=== PATIENT | male | born 1950 | race Caucasian/White ===

== ENCOUNTER 2017-10-31 07:18 | Observation (INO) | payer MEDICARE ==
--- OUTSIDE RECORDS SUMMARY | 2017-10-31 07:27 | XMS REPORT ---
:1950 External Reference #:[id number] [facility] Address [address] [address] Phone [phone] Care Team Providers Name Role Phone Delonte Brink MD Care Team Information General Agent Unavailable Ross Fonseca NP Primary Care Physician Unavailable Payers Type Date Identification Numbers Payment Provider Subscriber Medicare Primary Effective: Policy Number: Medicare Jv Diaz 2010 [id number] PayID: [id number] [address] [place] [address] [facility] Part B Policy Number: [id number] [facility] Jv Diaz PayID: [id number] [address] [place] [address] Problems Date Description Provider Status Onset: 02/06/2012 Paroxysmal supraventricular Asher Melton M.D. Active tachycardia Onset: 02/06/2012 Coronary arteriosclerosis Asher Melton M.D. Active Onset: 02/06/2012 Benign essential hypertension Asher Melton M.D. 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 Active Onset: 03/18/2014 Electrocardiogram abnormal Asher Melton M.D. Active Onset: 03/18/2014 Pure hypercholesterolemia Asher Melton M.D. Active Onset: 07/13/2014 Obstructive sleep apnea of adult Lizzy Blair DNP, Active RN, INTERIOR DESIGN PROJECT MANAGER- Note: npsg 02/15/10 Family History Date Family Member(s) Problem(s) Comments Onset: (age 65 Father CABG Years) Paternal Grandfather due to Cancer, () - heart Colon problems Paternal Grandmother due to Heart () Disease Social History Type Date Description Comments Marital Status Occupation Currently Working ETOH Use Occasionally consumes alcohol Smoking Patient is a former smoker Daily Caffeine Consumes on average 1 cup of regular coffee per day Allergies, Adverse Reactions, Alerts Date Description Reaction Status Severity Comments 10/03/2006 NKDA active Medications Medication Date Status Form Strength Qnty SIG Indications Ordering Provider Verapamil HCL 12/25/ Active Caps ER 120mg 60cap 1 by mouth Asher ER 2015 24HR s twice a day Filiberto Melton M.D. Omeprazole 01/21/ Active Capsules 40mg 90cap 1 by mouth Asher 2014 DR jacobo every day Filiberto Melton M.D. Lipitor 08/17/ Active Tablets 10mg 90tab 1/2 tablet by Asher 2012 s mouth every F. night at [facility], bedtime M.Kadi Jobst 07/31/ Active Misc 2Pair 1 pair daily Asher Anti-Embolism 2011 F. Knee Adolph Melton/Medium M.DSil Regular Nitrostat 02/23/ Active Tablets 0.4mg 25tab one sl q5min up Mozier 2009 Sub s to 3 doses as Kadi Cordova, needed M.DSil Aspirin 09/06/ Active Tablets 81mg 50tab 1 po qd Asher 2008 s Filiberto Melton M.D. Atenolol 08/17/ Active Tablets 25mg 90tab 1 by mouth Asher 2008 s every day Filiberto Melton M.D. Allopurinol 10/03/ Active Tablets 300mg 30tab 1 PO qd Asher 2006 s Filiberto Melton M.D. Fish Oil / Active Oil 1200 1 po bid Unknown 0000 C-Pap / Active qhs Unknown 0000 Verapamil HCL 12/16/ Hx Tablets 120mg 180ta 1 tab in the Mozier 2016 - bs morning, 1 tab DSil Cordova, 12/25/ at night M.DSil 2015 Lovenox 05/14/ Hx Solution 115mg 10uni 1 Unknown 2011 - ts subcutaneously 07/31/ q12h as 2012 directed Lipitor 09/20/ Hx Tablets 10mg 90tab 1/2 po qd Asher 2010 - s F. trace, 2012 M.D. Lipitor 07/20/ Hx Tablets 20mg 30tab one tab po qhs Asher 2010 - s F. trace, 2010 M.D. Zocor 05/28/ Hx Tablets 20mg 1 po qhs Asher 2010 - F. 07/20/ trace, 2010 M.D. Omeprazole 07/13/ Hx Capsules 40mg 90cap 1 by mouth Asher 2009 - DR s every day . Geronimo, 2014 M.D. Diltiazem HCL 08/17/ Hx Caps ER 120mg 90cap 1 by mouth Asher ER 2008 - 24HR s every day at at F. 10/14/ bedtime (pt to [email or web address] stop when M.D. supply completed and begin verapamil) Lisinopril 10/28/ Hx Tablets 2.5mg 90tab 1/2 po qd Asher 2008 - s . Geronimo, 2008 M.D. Lisinopril 10/15/ Hx Tablets 2.5mg 90tab 1 po qd Asher 2008 - s F. 10/20/ Geronimo, 2008 M.D. Nitro-Dur 10/04/ Hx Patches 0.3mg/HR 90uni Topically qam Asher 2008 - 24HR ts Off In PM prn F. Geronimo, 2012 M.D. Nitro-Dur 05/25/ Hx Patches 0.2mg/HR 30uni 1 Patch qd Asher 2007 - 24HR ts F. 10/04/ On In Geronimo2008 The Am, Off In M.D. The PM Atenolol 05/14/ Hx Tablets 25mg 180ta 1 PO bid Asher 2007 - bs F. Geronimo, 2008 M.D. Ibuprofen 05/13/ Hx Tablets 800mg PO tid prn Asher 2007 - (rare use) F. Geronimo, 2016 M.D. Zocor 05/10/ Hx Tablets 40mg 90tab 1 PO QHS Asher 2007 - s F. 05/28/ Mauser, 2010 M.DSil Nitroquick 03/16/ Hx Tablets 0.4mg 25tab 1 S/L prn Chest Asher 2007 - Sub s Pain, Q 5 Min. F. 02/23/ Up To 3 Tabs user, 2009 M.D. Plavix 03/12/ Hx Tablets 75mg 90tab 1 PO qd Asher 2007 - s F. 05/15/ Mauser, 2011 M.D. Zocor 03/12/ Hx Tablets 40mg 90tab 1 PO QHS Asher 2007 - s F. 03/12/ Mauser, 2007 M.Kadi Aspir-81 03/12/ Hx Tablets 81mg 30tab 1 PO qd Asher 2007 - DR s F. 09/06/ user, 2008 Luke.Kadi Cartia XT 03/12/ Hx Caps ER 120mg 90cap 1 po qd Asher 2007 - 24HR s F. 10/15/ user, 2008 M.Kadi Nitro-Dur 03/12/ Hx Patches 0.1mg/HR 90uni 1 to chest wall Asher 2007 - 24HR ts on qam off qpm F. 05/25/ user, 2007 MBinh Zocor 03/12/ Hx Tablets 20mg 30tab 1 PO QHS Asher 2007 - s F. 05/10/ user, 2007 M.Kadi Nitro-Dur 02/24/ Hx Patches 0.2mg/HR 30uni 1 Patch qd Asher 2007 - 24HR ts F. 03/12/ On In , 2007 The Am, Off In M.D. The PM Norvasc 10/08/ Hx Tablets 5mg 1 po qd Asher 2006 - F. 10/08/ Mauser, 2006 Osman Atenolol 10/03/ Hx Tablets 50mg 90tab 1/2 PO bid Asher 2006 - s F. 05/14/ Mauser, 2007 Osman Ibuprofen 10/03/ Hx Tablets 800mg 1 PO Q 8 HRS Asher 2006 - F. 05/13/ user, 2007 M.D. Norvasc 10/03/ Hx Tablets 5mg 5tabs 1 po qd 2 days Asher 2006 - before and day . stress test. Zia Melton M.D. Aspirin / Hx Tablets 325mg 50tab 1 po qd Unknown 0000 - s 2008 Coumadin / Hx Solution 60uni as directed Unknown 0000 - Rec ts managed by 07/31/ roberth brunner 2011 med Warfarin / Hx Tablets 4mg 90tab take as Unknown Sodium 0000 - s directed Beverley Raymundo manages 2013 Verapamil HCL / Hx Caps ER 120mg 90cap 1 tablet bid Asher ER 0000 - 24HR s F. 12/16/ Maycol Melton M.D. Vital Signs Date Vital Result Comment 10/25/2017 Height 70 inches 5'10" Weight 265.00 lb BP Systolic 124 mmHg BP Diastolic 70 mmHg Respiratory Rate 20 /min Body Temperature 97.4 F Pain Level 8 BMI (Body Mass Index) 38.0 kg/m2 06/18/2017 Height 70 inches 5'10" Weight 265.00 lb Heart Rate 60 /min BP Systolic Sitting 122 mmHg BP Diastolic Sitting 80 mmHg Respiratory Rate 14 /min O2 % BldC Oximetry 95 % BMI (Body Mass Index) 38.0 kg/m2 02/13/2017 Height 70 inches 5'10" Weight 266.75 lb with shoes Heart Rate 66 /min BP Systolic Sitting 128 mmHg LA lrg cuff BP Diastolic Sitting 78 mmHg LA lrg cuff BMI (Body Mass Index) 38.3 kg/m2 Ejection Fraction 64% Nem 05/18/11 01/07/2017 Height 70 inches 5'10" Weight 275.00 lb w/shoes Heart Rate 62 /min BP Systolic Sitting 142 mmHg LA, large BP Diastolic Sitting 88 mmHg LA, large BMI (Body Mass Index) 39.5 kg/m2 Ejection Fraction 64% Nem 05/18/11 06/12/2016 Height 70 inches 5'10" Weight 269.00 lb Heart Rate 68 /min BP Systolic 144 mmHg BP Diastolic 88 mmHg Respiratory Rate 14 /min O2 % BldC Oximetry 97 % BMI (Body Mass Index) 38.6 kg/m2 04/10/2016 Height 70 inches 5'10" Weight 261.00 lb with shoes Heart Rate 70 /min BP Systolic Sitting 146 mmHg LA lrg cuff BP Diastolic Sitting 92 mmHg LA lrg cuff BP Systolic Standing 128 mmHg la sitting repeat BP Diastolic Standing 86 mmHg la sitting repeat BMI (Body Mass Index) 37.4 kg/m2 11/08/2015 Height 70 inches 5'10" Heart Rate 72 /min BP Systolic 132 mmHg LA, large BP Diastolic 76 mmHg LA, large BP Systolic Sitting 132 mmHg Ra, large BP Diastolic Sitting 78 mmHg Ra, large BP Systolic Recheck 130 mmHg HR 66 (home unit) BP Diastolic Recheck 82 mmHg HR 66 (home unit) 08/08/2015 Height 70 inches 5'10" Weight 258.00 lb w/shoes Heart Rate 62 /min BP Systolic Sitting 164 mmHg LA lg cuff BP Diastolic Sitting 82 mmHg LA lg cuff BP Systolic Standing 132 mmHg la repeat sitting. BP Diastolic Standing 86 mmHg la repeat sitting. BMI (Body Mass Index) 37.0 kg/m2 Ejection Fraction 64 Nem 11/04/12 06/17/2015 Height 70 inches 5'10" Weight 258.38 lb Heart Rate 75 /min BP Systolic 152 mmHg BP Diastolic 98 mmHg Respiratory Rate 14 /min O2 % BldC Oximetry 98 % BMI (Body Mass Index) 37.1 kg/m2 Neck Circumference in inches 19 01/03/2015 Height 70 inches 5'10" Weight 264.25 lb w/shoes Heart Rate 70 /min BP Systolic 137 mmHg repeat. la sitting BP Diastolic 89 mmHg repeat. la sitting BP Systolic Sitting 150 mmHg LA lg cuff BP Diastolic Sitting 92 mmHg LA lg cuff Respiratory Rate 14 /min BMI (Body Mass Index) 37.9 kg/m2 07/13/2014 Height 70 inches 5'10" Weight 260.00 lb Heart Rate 57 /min BP Systolic Sitting 141 mmHg BP Diastolic Sitting 93 mmHg Respiratory Rate 20 /min O2 % BldC Oximetry 96 % Ra BMI (Body Mass Index) 37.3 kg/m2 03/18/2014 Height 70 inches 5'10" Weight 256.50 lb Heart Rate 76 /min BP Systolic Sitting 138 mmHg BP Diastolic Sitting 74 mmHg Respiratory Rate 16 /min BMI (Body Mass Index) 36.8 kg/m2 08/17/2013 Height 70 inches 5'10" Weight 256.00 lb Heart Rate 54 /min BP Systolic 120 mmHg BP Diastolic 80 mmHg Respiratory Rate 16 /min BMI (Body Mass Index) 36.7 kg/m2 03/11/2013 Height 70 inches 5'10" Weight 262.00 lb Heart Rate 61 /min BP Systolic 122 mmHg BP Diastolic 86 mmHg Respiratory Rate 16 /min BMI (Body Mass Index) 37.6 kg/m2 11/06/2012 Height 70 inches 5'10" Weight 260.00 lb Heart Rate 68 /min BP Systolic 118 mmHg BP Diastolic 78 mmHg BMI (Body Mass Index) 37.3 kg/m2 07/31/2012 Height 70 inches 5'10" Weight 261.00 lb Heart Rate 72 /min BP Systolic Sitting 142 mmHg BP Diastolic Sitting 80 mmHg BMI (Body Mass Index) 37.4 kg/m2 02/06/2012 Height 70 inches 5'10" Weight 253.00 lb Heart Rate 61 /min BP Systolic 120 mmHg BP Diastolic 84 mmHg Respiratory Rate 16 /min BMI (Body Mass Index) 36.3 kg/m2 05/03/2011 Height 70 inches 5'10" Weight 260.00 lb Heart Rate 67 /min BP Systolic 120 mmHg L BP Diastolic 90 mmHg L BMI (Body Mass Index) 37.3 kg/m2 07/13/2010 Height 70 inches 5'10" Weight 252.00 lb Heart Rate 57 /min BP Systolic 120 mmHg BP Diastolic 84 mmHg Respiratory Rate 16 /min BMI (Body Mass Index) 36.2 kg/m2 02/16/2010 Height 70 inches 5'10" Weight 262.00 lb Heart Rate 64 /min BP Systolic Sitting 110 mmHg BP Diastolic Sitting 78 mmHg BMI (Body Mass Index) 37.6 kg/m2 09/06/2009 Weight 252.00 lb Heart Rate 70 /min BP Systolic Sitting 110 mmHg BP Diastolic Sitting 80 mmHg Respiratory Rate 16 /min 08/17/2009 Height 69 inches 5'9" Weight 247.00 lb Heart Rate 79 /min BP Systolic Sitting 110 mmHg BP Diastolic Sitting 70 mmHg BMI (Body Mass Index) 36.5 kg/m2 05/06/2009 Weight 249.00 lb Heart Rate 66 /min BP Systolic Sitting 110 mmHg BP Diastolic Sitting 80 mmHg Respiratory Rate 16 /min 11/03/2008 Height 69 inches 5'9" Weight 255.00 lb Heart Rate 72 /min BP Systolic Sitting 104 mmHg L BP Diastolic Sitting 78 mmHg L BMI (Body Mass Index) 37.7 kg/m2 10/15/2008 Height 69 inches 5'9" Weight 263.00 lb Heart Rate 85 /min BP Systolic Sitting 120 mmHg BP Diastolic Sitting 80 mmHg BP Systolic Standing 110 mmHg BP Diastolic Standing 82 mmHg BMI (Body Mass Index) 38.8 kg/m2 05/13/2008 Height 69 inches 5'9" Weight 247.00 lb Heart Rate 68 /min BP Systolic Sitting 104 mmHg BP Diastolic Sitting 80 mmHg BP Systolic Standing 98 mmHg BP Diastolic Standing 80 mmHg BMI (Body Mass Index) 36.5 kg/m2 03/12/2008 Height 69 inches 5'9" Weight 254.00 lb Heart Rate 61 /min BP Systolic Sitting 140 mmHg L BP Diastolic Sitting 88 mmHg L BMI (Body Mass Index) 37.5 kg/m2 10/03/2006 Height 69 inches 5'9" Weight 265.00 lb Heart Rate 63 /min BP Systolic Sitting 138 mmHg left arm, right arm 140/98 BP Diastolic Sitting 94 mmHg left arm, right arm 140/98 BP Systolic Standing 140 mmHg BP Diastolic Standing 100 mmHg BMI (Body Mass Index) 39.1 kg/m2 Results Test Date Test Result H/L Range Note Laboratory test finding 10/16/2016 Magnesium 1.9 mg/dL 1.9-2.7 1 CBC Auto Diff 10/16/2016 White Blood Count 5.3 10^3/uL 3.5-10.8 Red Blood Count 5.18 10^6/uL 4.0-5.4 Hemoglobin 15.8 g/dL 14.0-18.0 Hematocrit 48 % 42-52 Mean Corpuscular Volume 92 fL 80-94 Mean Corpuscular Hemoglobin 31 pg 27-31 Mean Corpuscular HGB Conc 33 g/dL 31-36 Red Cell Distribution Width 14 % 10.5-15 Platelet Count 141 10^3/uL Low 150-450 Mean Platelet Volume 8 um3 7.4-10.4 Abs Neutrophils 2.8 10^3/uL 1.5-7.7 Abs Lymphocytes 1.7 10^3/uL 1.0-4.8 Abs Monocytes 0.6 10^3/uL 0-0.8 Abs Eosinophils 0.2 10^3/uL 0-0.6 Abs Basophils 0 10^3/uL 0-0.2 Abs Nucleated RBC 0.02 10^3/uL Granulocyte % 52.8 % 38-83 Lymphocyte % 31.9 % 25-47 Monocyte % 10.7 % High 1-9 Eosinophil % 4.0 % 0-6 Basophil % 0.6 % 0-2 Nucleated Red Blood Cells % 0.4 Lipid Panel - [facility] 10/16/2016 Creatine Kinase(CK) 73 U/L 10-223 Comp Metabolic Panel 10/16/2016 Sodium 137 mmol/L 133-145 Potassium 4.4 mmol/L 3.5-5.0 Chloride 104 mmol/L 101-111 Co2 Carbon Dioxide 26 mmol/L 22-32 Anion Gap 7 mmol/L 2-11 Glucose 115 mg/dL High 70-100 Blood Urea Nitrogen 19 mg/dL 6-24 Creatinine 0.97 mg/dL 0.67-1.17 BUN/Creatinine Ratio 19.6 8-20 Calcium 9.4 mg/dL 8.6-10.3 Total Protein 6.5 g/dL 6.4-8.9 Albumin 4.3 g/dL 3.2-5.2 Globulin 2.2 g/dL 2-4 Albumin/Globulin Ratio 2.0 1-3 Total Bilirubin 1.40 mg/dL High 0.2-1.0 Alkaline Phosphatase 53 U/L 34-104 Alt 25 U/L 7-52 Ast 17 U/L 13-39 Egfr Non- 77.9 >60 Egfr 100.2 >60 2 Lipid Profile (Trig/Chol/HDL) 10/16/2016 Triglycerides 161 mg/dL 3 Cholesterol 149 mg/dL 4 HDL Cholesterol 33.8 mg/dL 5 LDL Cholesterol 83 mg/dL 6 CBC Auto Diff 10/14/2015 White Blood Count 5.0 10^3/uL 3.5-10.8 Red Blood Count 5.24 10^6/uL 4.0-5.4 Hemoglobin 16.2 g/dL 14.0-18.0 Hematocrit 49 % 42-52 Mean Corpuscular Volume 94 fL 80-94 Mean Corpuscular Hemoglobin 31 pg 27-31 Mean Corpuscular HGB Conc 33 g/dL 31-36 Red Cell Distribution Width 14 % 10.5-15 Platelet Count 167 10^3/uL 150-450 Mean Platelet Volume 9 um3 7.4-10.4 Abs Neutrophils 2.6 10^3/uL 1.5-7.7 Abs Lymphocytes 1.5 10^3/uL 1.0-4.8 Abs Monocytes 0.6 10^3/uL 0-0.8 Abs Eosinophils 0.2 10^3/uL 0-0.6 Abs Basophils 0 10^3/uL 0-0.2 Abs Nucleated RBC 0.02 10^3/uL Granulocyte % 52.6 % 38-83 Lymphocyte % 31.0 % 25-47 Monocyte % 11.5 % High 1-9 Eosinophil % 4.2 % 0-6 Basophil % 0.7 % 0-2 Nucleated Red Blood Cells % 0.4 Lipid Panel - [facility] 10/14/2015 Creatine Kinase(CK) 77 U/L 10-223 7 Comp Metabolic Panel 10/14/2015 Sodium 138 mmol/L 133-145 Potassium 4.6 mmol/L 3.5-5.0 Chloride 106 mmol/L 101-111 Co2 Carbon Dioxide 25 mmol/L 22-32 Anion Gap 7 mmol/L 2-11 Glucose 119 mg/dL High 70-100 Blood Urea Nitrogen 18 mg/dL 6-24 Creatinine 0.95 mg/dL 0.67-1.17 BUN/Creatinine Ratio 18.9 8-20 Calcium 9.1 mg/dL 8.6-10.3 Total Protein 6.6 g/dL 6.4-8.9 Albumin 4.4 g/dL 3.2-5.2 Globulin 2.2 g/dL 2-4 Albumin/Globulin Ratio 2.0 1-3 Total Bilirubin 1.10 mg/dL High 0.2-1.0 Alkaline Phosphatase 57 U/L 34-104 Alt 34 U/L 7-52 Ast 18 U/L 13-39 Egfr Non- 80.1 >60 Egfr 103.0 >60 8 Lipid Profile (Trig/Chol/HDL) 10/14/2015 Triglycerides 130 mg/dL 9 Cholesterol 150 mg/dL 10 HDL Cholesterol 32.7 mg/dL 11 LDL Cholesterol 91 mg/dL 12 Laboratory test finding 10/14/2015 Magnesium 2.0 mg/dL 1.9-2.7 13 CBC Auto Diff 06/03/2014 White Blood Count 5.0 10^3/uL 4.8-10.8 14 Red Blood Count 5.18 10^6/uL 4.0-5.4 14 Hemoglobin 16.0 g/dL 14.0-18.0 14 Hematocrit 48 % 42-52 14 Mean Corpuscular Volume 93 fL 80-94 14 Mean Corpuscular Hemoglobin 31 pg 27-31 14 Mean Corpuscular HGB Conc 33 g/dL 31-36 14 Red Cell Distribution Width 13 % 10.5-15 14 Platelet Count 136 10^3/uL Low 150-450 14 Mean Platelet Volume 8 um3 7.4-10.4 14 Abs Neutrophils 2.9 10^3/uL 1.5-7.7 14 Abs Lymphocytes 1.3 10^3/uL 1.0-4.8 14 Abs Monocytes 0.6 10^3/uL 0-0.8 14 Abs Eosinophils 0.2 10^3/uL 0-0.6 14 Abs Basophils 0 10^3/uL 0-0.2 14 Abs Nucleated RBC 0 10^3/uL 14 Granulocyte % 58.6 % 38-83 14 Lymphocyte % 26.3 % 25-47 14 Monocyte % 11.6 % High 1-9 14 Eosinophil % 3.0 % 0-6 14 Basophil % 0.5 % 0-2 14 Nucleated Red Blood Cells % 0.1 14 Lipid Panel - [facility] 06/03/2014 Creatine Kinase 72 U/L 10-223 14, 15 Comp Metabolic Panel 06/03/2014 Sodium 139 mmol/L 133-145 14 Potassium 4.3 mmol/L 3.7-5.6 14 Chloride 106 mmol/L 101-111 14 Co2 Carbon Dioxide 26 mmol/L 22-32 14 Anion Gap 7 mmol/L 2-11 14 Glucose 118 mg/dL High 70-100 14 Blood Urea Nitrogen 19 mg/dL 6-24 14 Creatinine 1.01 mg/dL 0.67-1.17 14 BUN/Creatinine Ratio 18.8 8-20 14 Calcium 9.3 mg/dL 8.6-10.3 14 Total Protein 6.7 g/dL 6.4-8.9 14 Albumin 4.2 g/dL 3.2-5.2 14 Globulin 2.5 g/dL 2-4 14 Albumin/Globulin Ratio 1.7 1-3 14 Total Bilirubin 1.10 mg/dL High 0.2-1.0 14 Alkaline Phosphatase 58 U/L 34-104 14 Alt 26 U/L 7-52 14 Ast 18 U/L 13-39 14 Egfr Non- 74.9 >60 14 Egfr 96.3 >60 14, 16 Lipid Profile (Trig/Chol/HDL) 06/03/2014 Triglycerides 124 mg/dL 14, 17 Cholesterol 142 mg/dL 14, 18 HDL Cholesterol 34.8 mg/dL 14, 19 LDL Cholesterol 82 mg/dL 14, 20 Lipid Panel - [facility] 06/13/2013 Creatine Kinase 56 U/L 0-200 21 Comp Metabolic Panel 06/13/2013 Sodium 141 mmol/L 133-145 Potassium 4.5 mmol/L 3.5-5.0 Chloride 109 mmol/L 101-111 Co2 Carbon Dioxide 27.0 mmol/L 22-32 Anion Gap 5.0 mmol/L 2-11 Glucose 116 mg/dL High 70-100 Blood Urea Nitrogen 16 mg/dL 6-24 Creatinine 0.90 mg/dL 0.50-1.40 BUN/Creatinine Ratio 17.8 8-20 Calcium 9.2 mg/dL 8.1-9.9 Total Protein 6.0 g/dL Low 6.2-8.1 Albumin 3.8 g/dL 3.2-5.2 Globulin 2.2 g/dL 2-4 Albumin/Globulin Ratio 1.7 1-3 Total Bilirubin 1.5 mg/dL 0.4-1.5 Alkaline Phosphatase 53 U/L 30-110 Alt 30 U/L 14-54 Ast 20 U/L 12-42 Egfr Non- 85.8 >60 Egfr 110.3 >60 22 Lipid Profile (Trig/Chol/HDL) 06/13/2013 Triglycerides 171 mg/dL 40-200 Cholesterol 153 mg/dL Less than 200 HDL Cholesterol 35 mg/dL Low 40-60 23 Cholesterol/HDL Ratio 4.4 Average 1-4.44 LDL Cholesterol 83.8 Less Than 100 24 Comp Metabolic Panel 02/06/2013 Sodium 140 mmol/L 133-145 Potassium 4.4 mmol/L 3.5-5.0 Chloride 106 mmol/L 101-111 Co2 Carbon Dioxide 27.0 mmol/L 22-32 Anion Gap 7.0 mmol/L 2-11 Glucose 109 mg/dL High 70-100 Blood Urea Nitrogen 17 mg/dL 6-24 Creatinine 1.10 mg/dL 0.50-1.40 BUN/Creatinine Ratio 15.5 8-20 Calcium 9.3 mg/dL 8.1-9.9 Total Protein 6.4 g/dL 6.2-8.1 Albumin 4.0 g/dL 3.2-5.2 Globulin 2.4 g/dL 2-4 Albumin/Globulin Ratio 1.7 1-3 Total Bilirubin 1.8 mg/dL High 0.4-1.5 Alkaline Phosphatase 59 U/L 30-110 Alt 38 U/L 14-54 Ast 27 U/L 12-42 Egfr Non- 68.1 >60 Egfr 87.5 >60 25 Lipid Profile (Trig/Chol/HDL) 02/06/2013 Triglycerides 118 mg/dL 40-200 Cholesterol 135 mg/dL Less than 200 HDL Cholesterol 31 mg/dL Low 40-60 26 Cholesterol/HDL Ratio 4.4 Average 1-4.44 LDL Cholesterol 80.4 mg/dL Less Than 100 27 Laboratory test finding 02/06/2013 Creatine Kinase 262 U/L High 0-200 Comp Metabolic Panel 08/01/2012 Sodium 139 mmol/L 133-145 Potassium 4.1 mmol/L 3.5-5.0 Chloride 109 mmol/L 101-111 Co2 Carbon Dioxide 25.0 mmol/L 22-32 Anion Gap 5.0 mmol/L 2-11 Glucose 109 mg/dL High 70-100 Blood Urea Nitrogen 15 mg/dL 6-24 Creatinine 0.90 mg/dL 0.50-1.40 BUN/Creatinine Ratio 16.7 8-20 Calcium 9.0 mg/dL 8.1-9.9 Total Protein 6.4 GM/DL 6.2-8.1 Albumin 4.1 GM/DL 3.2-5.2 Globulin 2.3 GM/DL 2-4 Albumin/Globulin Ratio 1.8 1-3 Total Bilirubin 1.8 mg/dL High 0.1-1.0 28 Alkaline Phosphatase 59 U/L 30-110 Alt 33 U/L 14-54 Ast 25 U/L 12-42 Egfr Non- 86.1 >60 Egfr 110.7 >60 29 Lipid Profile (Trig/Chol/HDL) 08/01/2012 Triglycerides 149 mg/dL 40-200 Cholesterol 154 mg/dL Less than 200 30 HDL Cholesterol 35 mg/dL Low 40-60 31 Cholesterol/HDL Ratio 4.4 AVERAGE 1-4.44 LDL Cholesterol 89.2 mg/dL Less Than 100 Laboratory test finding 08/01/2012 Creatine Kinase 171 U/L 0-200 32 TSH (Thyroid Stimulating Horm) 1.63 MIU/ML 0.34-5.60 33 B Type Natriuretic Peptide 32.0 pg/mL 0-100 Factor 5 Leiden Mutation 08/01/2012 Factor V Leiden Mutation Negative Negative Factor V Leiden Interpretation See Comment 34 Factor V Leiden Reviewed By Nathalie Grimes <SEE NOTE> 35 Comp Metabolic Panel 04/07/2012 Sodium 137 mmol/L 135-145 Potassium 4.4 mmol/L 3.5-5.0 Chloride 104 mmol/L 101-111 Co2 (Carbon Dioxide) 26.0 mmol/L 22-32 Anion Gap 7.0 mmol/L 2-11 36 Glucose 120 mg/dL High 70-100 BUN 17 mg/dL 6-24 Creatinine 0.9 mg/dL 0.50-1.40 One Over Creatinine 1.11 BUN/Creatinine Ratio 18.9 8-20 Calcium 8.8 mg/dL 8.1-9.9 Total Protein 6.3 GM/DL 6.2-8.1 Albumin 3.9 GM/DL 3.2-5.2 Globulin 2.4 GM/DL 2-4 Albumin/Globulin Ratio 1.6 1-3 Bilirubin Total 1.3 mg/dL 0.4-1.5 37 Alkaline Phosphatase 71 U/L 39-117 Alt (SGPT) 31 U/L 17-63 Ast (Sgot) 23 U/L 12-42 eGFR Non- 86.1 > 60 eGFR 110.7 > 60 38 Lipid Profile (Trig/Chol/HDL) 04/07/2012 Triglyceride 170 mg/dL 40-200 Cholesterol 156 mg/dL Less Than 200 39 High Density Lipoprotein 34 mg/dL Low 40-60 40 Cholesterol/HDL Ratio 4.59 AVERAGE 1-4.97 Low Density Lipoprotein 88 mg/dL Less Than 100 41 CBC Auto Diff 04/07/2012 White Blood Count 5.2 CUMM 4.8-10.8 Red Cell Count 5.13 CUMM 4.6-6.2 Hemoglobin 16.1 g/dL 14.0-18.0 Hematocrit 47 % 42-52 Mean Corpuscular Volume 91 um3 80-94 Mean Corpuscular Hemoglob 31 pg 27-31 Mean Corpuscular HGB Cone 34 g/dL 32-36 Redcell Distribution WDTH 13 % 10.5-15 Platelet Count 144 CUMM Low 150-450 Mean Platelet Volume 8.8 um3 7.4-10.4 Gran % 56.4 % 38-83 Lymph % 27.2 % 25-47 Mononuclear % 9.2 % High 1-9 Eosinophil % 6.8 % High 0-6 Basophil % 0.4 % 0-2 Abs Lymphs 1.4 1.0-4.8 Abs Mononuclear 0.5 0-0.8 Absolute Neutrophil Count 2.9 1.5-7.7 Abs Eosinophils 0.4 0-0.6 Abs Basophils 0 0-0.2 Laboratory test 04/07/2012 Hemoglobin A1c 5.6 % Less Than 6.0 42 finding Lipid Panel - [facility] 09/20/2011 CPK (Creatine Kinase) 79 U/L 0-200 14 Comp Metabolic Panel 09/20/2011 Sodium 141 mmol/L 135-145 14 Potassium 4.4 mmol/L 3.5-5.0 14 Chloride 106 mmol/L 101-111 14 Co2 (Carbon Dioxide) 29.0 mmol/L 22-32 14 Anion Gap 6.0 mmol/L 2-11 14, 43 Glucose 109 mg/dL High 70-100 14 BUN 17 mg/dL 6-24 14 Creatinine 1.0 mg/dL 0.50-1.40 14 One Over Creatinine 1.00 14 BUN/Creatinine Ratio 17.0 8-20 14 Calcium 9.1 mg/dL 8.1-9.9 14 Total Protein 6.6 GM/DL 6.2-8.1 14 Albumin 4.0 GM/DL 3.6-5.4 14 Globulin 2.6 GM/DL 2-4 14 Albumin/Globulin Ratio 1.5 1-3 14 Bilirubin Total 2.0 mg/dL High 0.4-1.5 14, 44 Alkaline Phosphatase 60 U/L 39-117 14 Alt (SGPT) 33 U/L 17-63 14 Ast (Sgot) 24 U/L 12-42 14 eGFR Non- 76.5 > 60 14 eGFR 98.4 > 60 14, 45 Lipid Profile (Trig/Chol/HDL) 09/20/2011 Triglyceride 146 mg/dL 40-200 14 Cholesterol 145 mg/dL Less Than 200 14, 46 High Density Lipoprotein 29 mg/dL Low 40-60 14, 47 Cholesterol/HDL Ratio 5.00 AVERAGE High 1-4.97 14 Low Density Lipoprotein 87 mg/dL Less Than 100 14, 48 Lipid Panel - [facility] 07/11/2011 CPK (Creatine Kinase) 83 U/L 0-200 Comp Metabolic Panel 07/11/2011 Sodium 141 mmol/L 135-145 Potassium 4.3 mmol/L 3.5-5.0 Chloride 108 mmol/L 101-111 Co2 (Carbon Dioxide) 25.0 mmol/L 22-32 Anion Gap 8.0 mmol/L 2-11 49 Glucose 117 mg/dL High 70-100 BUN 17 mg/dL 6-24 Creatinine 1.1 mg/dL 0.50-1.40 One Over Creatinine 0.90 BUN/Creatinine Ratio 15.5 8-20 Calcium 9.4 mg/dL 8.1-9.9 Total Protein 6.5 GM/DL 6.2-8.1 Albumin 4.0 GM/DL 3.6-5.4 Globulin 2.5 GM/DL 2-4 Albumin/Globulin Ratio 1.6 1-3 Bilirubin Total 1.2 mg/dL 0.4-1.5 50 Alkaline Phosphatase 72 U/L 39-117 Alt (SGPT) 36 U/L 17-63 Ast (Sgot) 25 U/L 12-42 eGFR Non- 68.5 > 60 eGFR 88.1 > 60 51 Lipid Profile (Trig/Chol/HDL) 07/11/2011 Triglyceride 286 mg/dL High 40- 200 Cholesterol 163 mg/dL Less Than 200 52 High Density Lipoprotein 30 mg/dL Low 40-60 53 Low Density Lipoprotein 76 mg/dL Less Than 100 54 Cholesterol/HDL Ratio 5.43 AVERAGE High 1-4.97 [facility] 06/01/2011 Surgical Pathology <SEE 55 NOTE> Lipid Panel - [facility] 09/01/2010 CPK (Creatine 98 U/L 0-200 14 Kinase) Comp Metabolic 09/01/2010 Sodium 135 mmol/L 135-145 14 Panel Potassium 4.6 mmol/L 3.5-5.0 14 Chloride 103 mmol/L 101-111 14 Co2 (Carbon Dioxide) 24.0 mmol/L 22-32 14 Anion Gap 8.0 mmol/L 2-11 14, 56 Glucose 128 mg/dL High 70-100 14, 57 BUN 19 mg/dL 6-24 14 Creatinine 1.00 mg/dL 0.50-1.40 14 One Over Creatinine 1.00 14 BUN/Creatinine Ratio 19.0 8-20 14 Calcium 8.8 mg/dL 8.1-9.9 14 Total Protein 7.0 GM/DL 6.2-8.1 14 Albumin 4.1 GM/DL 3.6-5.4 14 Globulin 2.9 GM/DL 2-4 14 Albumin/Globulin Ratio 1.4 1-3 14 Bilirubin Total 1.4 mg/dL 0.4-1.5 14, 58 Alkaline Phosphatase 66 U/L 39-117 14 Alt (SGPT) 38 U/L 17-63 14 Ast (Sgot) 26 U/L 12-42 14 eGFR Non- 81.6 > 60 14 eGFR 98.7 > 60 14, 59 Lipid Profile (Trig/Chol/HDL) 09/01/2010 Triglyceride 109 mg/dL 40-200 14 Cholesterol 148 mg/dL Less Than 200 14, 60 High Density Lipoprotein 33 mg/dL Low 40-60 14, 61 Cholesterol/HDL Ratio 4.48 AVERAGE 1-4.97 14 Low Density Lipoprotein 93 mg/dL Less Than 100 14, 62 Comp Metabolic Panel 02/22/2010 Sodium 140 mmol/L 135-145 Potassium 4.3 mmol/L 3.5-5.0 Chloride 111 mmol/L 101-111 Co2 (Carbon Dioxide) 24.0 mmol/L 22-32 Anion Gap 5.0 mmol/L 2-11 63 Glucose 94 mg/dL 70-100 64 BUN 18 mg/dL 6-24 Creatinine 1.10 mg/dL 0.50-1.40 One Over Creatinine 0.90 BUN/Creatinine Ratio 16.4 8-20 Calcium 9.0 mg/dL 8.1-9.9 65 Total Protein 6.1 GM/DL Low 6.2-8.1 Albumin 3.9 GM/DL 3.6-5.4 Globulin 2.2 GM/DL 2-4 Albumin/Globulin Ratio 1.8 1-3 Bilirubin Total 1.5 mg/dL 0.4-1.5 66 Alkaline Phosphatase 53 U/L 39-117 Alt (SGPT) 28 U/L 17-63 Ast (Sgot) 22 U/L 12-42 eGFR Non- 73.1 > 60 eGFR 88.4 > 60 67 Laboratory test finding 02/22/2010 CPK (Creatine Kinase) 95 U/L 0-200 CBC With Manual Diff 02/22/2010 White Blood Count 5.1 CUMM 4.8-10.8 Red Cell Count 4.68 CUMM 4.6-6.2 Hemoglobin 14.9 g/dL 14.0-18.0 Hematocrit 43 % 42-52 Mean Corpuscular Volume 92 um3 80-94 Mean Corpuscular Hemoglob 32 pg High 27-31 Mean Corpuscular HGB Cone 35 g/dL 32-36 Redcell Distribution WDTH 13 % 10.5-15 Platelet Count 152 CUMM 150-450 Mean Platelet Volume 7.9 um3 7.4-10.4 Polysegmented Neutrophil 72 % 38-83 Lymphocyte 20 % Low 25-47 Monocyte 7 % 0-13 Atypical Lymph 1 % 0-6 Absolute Neutrophil Count 3.6 RBC Morphology NORMAL Laboratory test finding 02/22/2010 TSH 1.21 MIU/ML 0.34-5.60 Lipid Profile (Trig/Chol/HDL) 02/22/2010 Triglyceride 217 mg/dL High 40- 200 Cholesterol 131 mg/dL Less Than 200 68 High Density Lipoprotein 26 mg/dL Low 40-60 69 Cholesterol/HDL Ratio 5.04 AVERAGE High 1-4.97 Low Density Lipoprotein 62 mg/dL Less Than 100 70 Protime 08/22/2009 Inr 0.94 Low 0.97-1.03 71, 72 Protime 11.1 SEC Low 11.5-12.2 71, 73 Cath Panel 08/22/2009 PTT (Aptt) 30.3 25.15-38.53 71, 74 CBC With Manual Diff 08/22/2009 White Blood Count 5.2 CUMM 4.8-10.8 71 Red Cell Count 5.20 CUMM 4.6-6.2 71 Hemoglobin 16.3 g/dL 14.0-18.0 71 Hematocrit 47 % 42-52 71 Mean Corpuscular Volume 91 um3 80-94 71 Mean Corpuscular Hemoglob 31 pg 27-31 71 Mean Corpuscular HGB Cone 34 g/dL 32-36 71 Redcell Distribution WDTH 13 % 10.5-15 71 Platelet Count 144 CUMM Low 150-450 71 Mean Platelet Volume 7.6 um3 7.4-10.4 71 Polysegmented Neutrophil 74 % 38-83 71 Band Neutrophil 1 % 0-8 71 Lymphocyte 13 % Low 25-47 71 Monocyte 5 % 0-13 71 Eosenophil 4 % 0-6 71 Atypical Lymph 3 % 0-6 71 Absolute Neutrophil Count 3.9 71 Anisocytosis SLIGHT 71 Basic Metabolic Panel 08/22/2009 Sodium 139 mmol/L 135-145 71 Potassium 4.5 mmol/L 3.5-5.0 71 Chloride 108 mmol/L 101-111 71 Co2 (Carbon Dioxide) 24.0 mmol/L 22-32 71 Anion Gap 7.0 mmol/L 2-11 71, 75 Glucose 111 mg/dL High 70-100 71, 76 BUN 17 mg/dL 6-24 71 Creatinine 0.90 mg/dL 0.50-1.40 71 One Over Creatinine 1.10 71 BUN/Creatinine Ratio 18.9 8-20 71 Calcium 8.9 mg/dL 8.1-9.9 71, 77 eGFR Non- 92.4 > 60 71 eGFR 111.9 > 60 71, 78 Lipid Panel - [facility] 05/04/2009 CPK (Creatine Kinase) 103 U/L 0-200 Comp Metabolic Panel 05/04/2009 Sodium 139 mmol/L 135-145 Potassium 4.5 mmol/L 3.5-5.0 Chloride 108 mmol/L 101-111 Co2 (Carbon Dioxide) 24.0 mmol/L 22-32 Anion Gap 7.0 mmol/L 2-11 79 Glucose 104 mg/dL High 70-100 80 BUN 17 mg/dL 6-24 Creatinine 1.00 mg/dL 0.50-1.40 One Over Creatinine 1.00 BUN/Creatinine Ratio 17.0 8-20 Calcium 9.2 mg/dL 8.1-9.9 81 Total Protein 6.7 GM/DL 6.2-8.1 Albumin 4.1 GM/DL 3.6-5.4 Globulin 2.6 GM/DL 2-4 Albumin/Globulin Ratio 1.6 1-3 Bilirubin Total 1.9 mg/dL High 0.4-1.5 82 Alkaline Phosphatase 63 U/L 39-117 Alt (SGPT) 30 U/L 17-63 Ast (Sgot) 23 U/L 12-42 eGFR Non- 81.9 > 60 eGFR 99.0 > 60 83 Lipid Profile (Trig/Chol/HDL) 05/04/2009 Triglyceride 157 mg/dL 40-200 Cholesterol 135 mg/dL Less Than 200 84 High Density Lipoprotein 26 mg/dL Low 40-60 85 Cholesterol/HDL Ratio 5.19 AVERAGE High 1-4.97 Low Density Lipoprotein 78 mg/dL Less Than 100 86 Lipid Profile (Trig/Chol/HDL) 10/29/2008 Triglyceride 135 mg/dL 40-200 Cholesterol 142 mg/dL Less Than 200 87 High Density Lipoprotein 33 mg/dL Low 40-60 88 Cholesterol/HDL Ratio 4.30 AVERAGE 1-4.97 Low Density Lipoprotein 82 mg/dL Less Than 100 89 Comp Metabolic Panel 10/29/2008 Sodium 137 mmol/L 135-145 Potassium 4.1 mmol/L 3.5-5.0 Chloride 107 mmol/L 101-111 Co2 (Carbon Dioxide) 24.0 mmol/L 22-32 Anion Gap 6.0 mmol/L 2-11 90 Glucose 101 mg/dL High 70-100 91 BUN 16 mg/dL 6-24 Creatinine 0.90 mg/dL 0.50-1.40 One Over Creatinine 1.10 BUN/Creatinine Ratio 17.8 8-20 Calcium 9.1 mg/dL 8.1-9.9 92 Total Protein 6.1 GM/DL Low 6.2-8.1 Albumin 3.8 GM/DL 3.6-5.4 Globulin 2.3 GM/DL 2-4 Albumin/Globulin Ratio 1.7 1-3 Bilirubin Total 1.8 mg/dL High 0.4-1.5 Alkaline Phosphatase 50 U/L 39-117 Alt (SGPT) 32 U/L 17-63 Ast (Sgot) 21 U/L 12-42 Laboratory test finding 10/29/2008 CPK (Creatine Kinase) 77 U/L 0-200 1 [MG] affected by ICTERUS 2 Because ethnic data is not always readily available, this report includes an eGFR for both -Americans and non- Americans. The National Kidney Disease Education Program (NKDEP) does not endorse the use of the MDRD equation for patients that are not between the ages of 18 and 70, are , have extremes of body size, muscle mass, or nutritional status, or are non- or non-. According to the National Kidney Foundation, irrespective of diagnosis, the stage of the disease is based on the level of kidney function: Stage Description GFR(mL/min/1.73 m(2)) 1 Kidney damage with normal or decreased GFR 90 2 Kidney damage with mild decrease in GFR 60-89 3 Moderate decrease in GFR 30-59 4 Severe decrease in GFR 15-29 5 Kidney failure <15 (or dialysis) 3 Desirable <150 Borderline high 150-199 High 200-499 Very High >500 4 Desirable <200 Borderline high 200-239 High >239 5 Low <40 Desirable: 40-60 High: >60 6 Desirable: <100 mg/dL Near Optimal: 100-129 mg/dL Borderline High: 130-159 mg/dL High: 160-189 mg/dL Very High: >189 mg/dL 7 FASTING 8 Because ethnic data is not always readily available, this report includes an eGFR for both -Americans and non- Americans. The National Kidney Disease Education Program (NKDEP) does not endorse the use of the MDRD equation for patients that are not between the ages of 18 and 70, are , have extremes of body size, muscle mass, or nutritional status, or are non- or non-. According to the National Kidney Foundation, irrespective of diagnosis, the stage of the disease is based on the level of kidney function: Stage Description GFR(mL/min/1.73 m(2)) 1 Kidney damage with normal or decreased GFR 90 2 Kidney damage with mild decrease in GFR 60-89 3 Moderate decrease in GFR 30-59 4 Severe decrease in GFR 15-29 5 Kidney failure <15 (or dialysis) 9 Desirable <150 Borderline high 150-199 High 200-499 Very High >500 10 Desirable <200 Borderline high 200-239 High >239 11 Low <40 Desirable: 40-60 High: >60 12 Desirable: <100 mg/dL Near Optimal: 100-129 mg/dL Borderline High: 130-159 mg/dL High: 160-189 mg/dL Very High: >189 mg/dL 13 FASTING 14 FASTING 15 FASTING 16 Because ethnic data is not always readily available, this report includes an eGFR for both -Americans and non- Americans. The National Kidney Disease Education Program (NKDEP) does not endorse the use of the MDRD equation for patients that are not between the ages of 18 and 70, are , have extremes of body size, muscle mass, or nutritional status, or are non- or non-. According to the National Kidney Foundation, irrespective of diagnosis, the stage of the disease is based on the level of kidney function: Stage Description GFR(mL/min/1.73 m(2)) 1 Kidney damage with normal or decreased GFR 90 2 Kidney damage with mild decrease in GFR 60-89 3 Moderate decrease in GFR 30-59 4 Severe decrease in GFR 15-29 5 Kidney failure <15 (or dialysis) 17 Desirable <150 Borderline high 150-199 High 200-499 Very High >500 18 Desirable <200 Borderline high 200-239 High >239 19 Low <40 Desirable: 40-60 High: >60 20 Desirable <100 Near Optimal 100-129 Borderline high 130-159 High 160-189 Very High >189 21 FASTING 22 Because ethnic data is not always readily available, this report includes an eGFR for both -Americans and non- Americans. The National Kidney Disease Education Program (NKDEP) does not endorse the use of the MDRD equation for patients that are not between the ages of 18 and 70, are , have extremes of body size, muscle mass, or nutritional status, or are non- or non-. According to the National Kidney Foundation, irrespective of diagnosis, the stage of the disease is based on the level of kidney function: Stage Description GFR(mL/min/1.73 m(2)) 1 Kidney damage with normal or decreased GFR 90 2 Kidney damage with mild decrease in GFR 60-89 3 Moderate decrease in GFR 30-59 4 Severe decrease in GFR 15-29 5 Kidney failure <15 (or dialysis) 23 HDL Interpretation: Undesirable: High Risk: Less than 40 mg/dL Desirable: Low Risk: Greater than 60 mg/dL 24 LDL Interpretation: Low Risk Optimal Level: LDL Less than 100 mg/dL Near or Above Optimal: LDL 100-129 mg/dL Borderline High Risk: LDL 130-159 mg/dL High Risk: LDL 160-189 mg/dL Very High Risk: LDL Greater than 189 mg/dL 25 Because ethnic data is not always readily available, this report includes an eGFR for both -Americans and non- Americans. The National Kidney Disease Education Program (NKDEP) does not endorse the use of the MDRD equation for patients that are not between the ages of 18 and 70, are , have extremes of body size, muscle mass, or nutritional status, or are non- or non-. According to the National Kidney Foundation, irrespective of diagnosis, the stage of the disease is based on the level of kidney function: Stage Description GFR(mL/min/1.73 m(2)) 1 Kidney damage with normal or decreased GFR 90 2 Kidney damage with mild decrease in GFR 60-89 3 Moderate decrease in GFR 30-59 4 Severe decrease in GFR 15-29 5 Kidney failure <15 (or dialysis) 26 HDL Interpretation: Undesirable: High Risk: Less than 40 MG/DL Desirable: Low Risk: Greater than 60 MG/DL 27 LDL Interpretation: Low Risk Optimal Level: LDL Less than 100 MG/DL Near or Above Optimal: LDL 100-129 MG/DL Borderline High Risk: LDL 130-159 MG/DL High Risk: LDL 160-189 MG/DL Very High Risk: LDL Greater than 189 MG/DL 28 A metabolite of Naproxen, O-desmethylnaproxen, has been shown to interfere with the [place] method for measuring total bilirubin. Samples from patients who have taken Naproxen have shown spurious elevation in total bilirubin levels. 29 Because ethnic data is not always readily available, this report includes an eGFR for both -Americans and non- Americans. The National Kidney Disease Education Program (NKDEP) does not endorse the use of the MDRD equation for patients that are not between the ages of 18 and 70, are , have extremes of body size, muscle mass, or nutritional status, or are non- or non-. According to the National Kidney Foundation, irrespective of diagnosis, the stage of the disease is based on the level of kidney function: Stage Description GFR(mL/min/1.73 m(2)) 1 Kidney damage with normal or decreased GFR 90 2 Kidney damage with mild decrease in GFR 60-89 3 Moderate decrease in GFR 30-59 4 Severe decrease in GFR 15-29 5 Kidney failure <15 (or dialysis) 30 Desirable: Less than 200 MG/DL Borderline-High Risk: 200-239 MG/DL High-Risk: 240 MG/DL and over 31 HDL Interpretation: Undesirable: High Risk: Less than 40 MG/DL Desirable: Low Risk: Greater than 60 MG/DL 32 FASTING 33 FASTING 34 This individual DOES NOT have the factor V Leiden (R506Q) mutation. Although the factor V Leiden mutation is absent, the individual may have other genetic and environmental risk factors for thrombosis. If clinically indicated, suggest Coagulation Consultation 36408 (Thrombophilia Profile) to complete the evaluation for an inherited or acquired thrombosing disorder (i.e., thrombophilia). This test is a direct mutation analysis of leukocyte genomic DNA by the [employer] Assay system ([employer], [employer], [place], [place]). Analyte Specific Reagent. This test was developed and its performance characteristics determined by [facility]. It has not been cleared or approved by the U.S. Food and Drug Administration. R 35 Manuel Arguello M.D. Test Performed by: [place] [address] Hand Lens Polisher: Edgar Louise III, M.D. R 36 Anion gap measurement may be of limited value in the presence of any alkalosis, especially in a combined acid base disorder. . 37 A metabolite of Naproxen, O-desmethylnaproxen, has been shown to interfere with the [place] method for measuring total bilirubin. Samples from patients who have taken Naproxen have shown spurious elevation in total bilirubin levels. 38 Because ethnic data is not always readily available, this report includes an eGFR for both -Americans and non- Americans. The National Kidney Disease Education Program (NKDEP) does not endorse the use of the MDRD equation for patients that are not between the ages of 18 and 70, are , have extremes of body size, muscle mass, or nutritional status, or are non- or non-. According to the National Kidney Foundation, irrespective of diagnosis, the stage of the disease is based on the level of kidney function: Stage Description GFR(mL/min/1.73 m(2)) 1 Kidney damage with normal or decreased GFR 90 2 Kidney damage with mild decrease in GFR 60-89 3 Moderate decrease in GFR 30-59 4 Severe decrease in GFR 15-29 5 Kidney failure <15 (or dialysis) 39 CHOLESTEROL INTERPRETATION: Desirable: Less than 200 MG/DL Borderline-High Risk: 200-239 MG/DL High-Risk: 240 MG/DL and over 40 HDL INTERPRETATION: Undesirable: High Risk: Less than 40 MG/DL Desirable: Low Risk: Greater than 60 MG/DL 41 LDL INTERPRETATION: Low Risk Optimal Level: LDL Less than 100 MG/DL Near or Above Optimal: LDL 100-129 MG/DL Borderline High Risk: LDL 130-159 MG/DL High Risk: LDL 160-189 MG/DL Very High Risk: LDL Greater than 189 MG/DL 42 THERAPEUTIC TARGET FOR THE TREATMENT OF DIABETES MELLITUS PATIENTS IS <7% HBA1C, AND IN SELECTIVE PATIENTS <6.0%. PLEASE REFER TO [employer] DIABETIC CARE GUIDELINES FOR FURTHER INFORMATION. 43 Anion gap measurement may be of limited value in the presence of any alkalosis, especially in a combined acid base disorder. . 44 A metabolite of Naproxen, O-desmethylnaproxen, has been shown to interfere with the [place] method for measuring total bilirubin. Samples from patients who have taken Naproxen have shown spurious elevation in total bilirubin levels. 45 Because ethnic data is not always readily available, this report includes an eGFR for both -Americans and non- Americans. The National Kidney Disease Education Program (NKDEP) does not endorse the use of the MDRD equation for patients that are not between the ages of 18 and 70, are , have extremes of body size, muscle mass, or nutritional status, or are non- or non-. According to the National Kidney Foundation, irrespective of diagnosis, the stage of the disease is based on the level of kidney function: Stage Description GFR(mL/min/1.73 m(2)) 1 Kidney damage with normal or decreased GFR 90 2 Kidney damage with mild decrease in GFR 60-89 3 Moderate decrease in GFR 30-59 4 Severe decrease in GFR 15-29 5 Kidney failure <15 (or dialysis) 46 CHOLESTEROL INTERPRETATION: Desirable: Less than 200 MG/DL Borderline-High Risk: 200-239 MG/DL High-Risk: 240 MG/DL and over 47 HDL INTERPRETATION: Undesirable: High Risk: Less than 40 MG/DL Desirable: Low Risk: Greater than 60 MG/DL 48 LDL INTERPRETATION: Low Risk Optimal Level: LDL Less than 100 MG/DL Near or Above Optimal: LDL 100-129 MG/DL Borderline High Risk: LDL 130-159 MG/DL High Risk: LDL 160-189 MG/DL Very High Risk: LDL Greater than 189 MG/DL 49 Anion gap measurement may be of limited value in the presence of any alkalosis, especially in a combined acid base disorder. . 50 A metabolite of Naproxen, O-desmethylnaproxen, has been shown to interfere with the [place] method for measuring total bilirubin. Samples from patients who have taken Naproxen have shown spurious elevation in total bilirubin levels. 51 Because ethnic data is not always readily available, this report includes an eGFR for both -Americans and non- Americans. The National Kidney Disease Education Program (NKDEP) does not endorse the use of the MDRD equation for patients that are not between the ages of 18 and 70, are , have extremes of body size, muscle mass, or nutritional status, or are non- or non-. According to the National Kidney Foundation, irrespective of diagnosis, the stage of the disease is based on the level of kidney function: Stage Description GFR(mL/min/1.73 m(2)) 1 Kidney damage with normal or decreased GFR 90 2 Kidney damage with mild decrease in GFR 60-89 3 Moderate decrease in GFR 30-59 4 Severe decrease in GFR 15-29 5 Kidney failure <15 (or dialysis) 52 CHOLESTEROL INTERPRETATION: Desirable: Less than 200 MG/DL Borderline-High Risk: 200-239 MG/DL High-Risk: 240 MG/DL and over 53 HDL INTERPRETATION: Undesirable: High Risk: Less than 40 MG/DL Desirable: Low Risk: Greater than 60 MG/DL 54 LDL INTERPRETATION: Low Risk Optimal Level: LDL Less than 100 MG/DL Near or Above Optimal: LDL 100-129 MG/DL Borderline High Risk: LDL 130-159 MG/DL High Risk: LDL 160-189 MG/DL Very High Risk: LDL Greater than 189 MG/DL 55 ---- RUN DATE: 06/05/11 [facility] NMI LIVE PAGE 1 RUN TIME: 1324 Specimen Inquiry RUN USER: INTERFACE -- Name: JV DIAZ Status: REG REF Re06/01/11 Age/Sex: 61/M Unit#: [id number] Location: [facility] : 54 -- Specimen: [id number] SOUT Spec Date: 06/01/[address]: Asaf mckenna MD Spec Type: SURGICAL P Received: 06/01/11-1017 Copies to: Ahser sy MASTER MECHANIC SPECIMEN BIOPSY GASTROESOPHAGEAL JUNCTION HISTORY POST-OP DIAGNOSIS: Esophagus - salmon pink, biopsied; stomach - gastritis , biopsied; duodenum - normal CLINICAL INFORMATION: Gastroesophageal reflux disease GROSS DESCRIPTION The specimen is received in formalin labelled Jv Diaz, Biopsy GE Junction, and consists of one fragment of yellow tissue measuring 0.4 x 0.2 x 0.2 cm. Submitted entirely, one cassette. DIAGNOSIS GE junction, biopsy: A. Gastroesophageal junction mucosa with non-specific chronic inflammation and reactive glandular epithelial changes. B. Specific features of reflux esophagitis or goblet cell metaplasia are not seen. C. No dysplasia identified. Signed Electronically by: BRODY NOVA MD 06/05/11 1320 -- -- DEPARTMENT OF PATHOLOGY, [address] [place] [address] [facility] Permit #[id number] Brody Nova M.D. Director Mahesh Pineda M.D. Image Processing Engineer Dir montagueor -- 56 Anion gap measurement may be of limited value in the presence of any alkalosis, especially in a combined acid base disorder. . 57 Note change in reference range as of 05/20/08. The change was based on recommendations from the [place] [employer]. 58 A metabolite of Naproxen, O-desmethylnaproxen, has been shown to interfere with the [place] method for measuring total bilirubin. Samples from patients who have taken Naproxen have shown spurious elevation in total bilirubin levels. 59 Because ethnic data is not always readily available, this report includes an eGFR for both -Americans and non- Americans. The National Kidney Disease Education Program (NKDEP) does not endorse the use of the MDRD equation for patients that are not between the ages of 18 and 70, are , have extremes of body size, muscle mass, or nutritional status, or are non- or non-. According to the National Kidney Foundation, irrespective of diagnosis, the stage of the disease is based on the level of kidney function: Stage Description GFR(mL/min/1.73 m(2)) 1 Kidney damage with normal or decreased GFR 90 2 Kidney damage with mild decrease in GFR 60-89 3 Moderate decrease in GFR 30-59 4 Severe decrease in GFR 15-29 5 Kidney failure <15 (or dialysis) 60 CHOLESTEROL INTERPRETATION: Desirable: Less than 200 MG/DL Borderline-High Risk: 200-239 MG/DL High-Risk: 240 MG/DL and over 61 HDL INTERPRETATION: Undesirable: High Risk: Less than 40 MG/DL Desirable: Low Risk: Greater than 60 MG/DL 62 LDL INTERPRETATION: Low Risk Optimal Level: LDL Less than 100 MG/DL Near or Above Optimal: LDL 100-129 MG/DL Borderline High Risk: LDL 130-159 MG/DL High Risk: LDL 160-189 MG/DL Very High Risk: LDL Greater than 189 MG/DL 63 Anion gap measurement may be of limited value in the presence of any alkalosis, especially in a combined acid base disorder. . 64 Note change in reference range as of 05/20/08. The change was based on recommendations from the [place] [employer]. 65 Please note change in reference range effective 08 . 66 A metabolite of Naproxen, O-desmethylnaproxen, has been shown to interfere with the [place] method for measuring total bilirubin. Samples from patients who have taken Naproxen have shown spurious elevation in total bilirubin levels. 67 Because ethnic data is not always readily available, this report includes an eGFR for both -Americans and non- Americans. The National Kidney Disease Education Program (NKDEP) does not endorse the use of the MDRD equation for patients that are not between the ages of 18 and 70, are , have extremes of body size, muscle mass, or nutritional status, or are non- or non-. According to the National Kidney Foundation, irrespective of diagnosis, the stage of the disease is based on the level of kidney function: Stage Description GFR(mL/min/1.73 m(2)) 1 Kidney damage with normal or decreased GFR 90 2 Kidney damage with mild decrease in GFR 60-89 3 Moderate decrease in GFR 30-59 4 Severe decrease in GFR 15-29 5 Kidney failure <15 (or dialysis) 68 CHOLESTEROL INTERPRETATION: Desirable: Less than 200 MG/DL Borderline-High Risk: 200-239 MG/DL High-Risk: 240 MG/DL and over 69 HDL INTERPRETATION: Undesirable: High Risk: Less than 40 MG/DL Desirable: Low Risk: Greater than 60 MG/DL 70 LDL INTERPRETATION: Low Risk Optimal Level: LDL Less than 100 MG/DL Near or Above Optimal: LDL 100-129 MG/DL Borderline High Risk: LDL 130-159 MG/DL High Risk: LDL 160-189 MG/DL Very High Risk: LDL Greater than 189 MG/DL [address] THOMAS AT FAX NUMBER [phone] Recommended INR for Patients on Oral Anticoagulants Prophylaxis 2.0 - 3.0 Treatment of thrombosis 2.0 - 3.0 Prevention of embolism 2.0 - 3.0 Prevention of embolism from prosthetic heart valves 2.5 - 3.5 73 DIAGNOSIS,TREATMENT,AND THERAPY MUST BE BASED ON THE INR VALUE ALONE. 74 PLEASE NOTE NEW REFERENCE RANGE EFFECTIVE 09. 75 Anion gap measurement may be of limited value in the presence of any alkalosis, especially in a combined acid base disorder. . 76 Note change in reference range as of 05/20/08. The change was based on recommendations from the [place] [employer]. 77 Please note change in reference range effective 08 . 78 Because ethnic data is not always readily available, this report includes an eGFR for both -Americans and non- Americans. The National Kidney Disease Education Program (NKDEP) does not endorse the use of the MDRD equation for patients that are not between the ages of 18 and 70, are , have extremes of body size, muscle mass, or nutritional status, or are non- or non-. According to the National Kidney Foundation, irrespective of diagnosis, the stage of the disease is based on the level of kidney function: Stage Description GFR(mL/min/1.73 m(2)) 1 Kidney damage with normal or decreased GFR 90 2 Kidney damage with mild decrease in GFR 60-89 3 Moderate decrease in GFR 30-59 4 Severe decrease in GFR 15-29 5 Kidney failure <15 (or dialysis) 79 Anion gap measurement may be of limited value in the presence of any alkalosis, especially in a combined acid base disorder. . 80 Note change in reference range as of 05/20/08. The change was based on recommendations from the [place] [employer]. 81 Please note change in reference range effective 08 . 82 A metabolite of Naproxen, O-desmethylnaproxen, has been shown to interfere with the [place] method for measuring total bilirubin. Samples from patients who have taken Naproxen have shown spurious elevation in total bilirubin levels. 83 Because ethnic data is not always readily available, this report includes an eGFR for both -Americans and non- Americans. The National Kidney Disease Education Program (NKDEP) does not endorse the use of the MDRD equation for patients that are not between the ages of 18 and 70, are , have extremes of body size, muscle mass, or nutritional status, or are non- or non-. According to the National Kidney Foundation, irrespective of diagnosis, the stage of the disease is based on the level of kidney function: Stage Description GFR(mL/min/1.73 m(2)) 1 Kidney damage with normal or decreased GFR 90 2 Kidney damage with mild decrease in GFR 60-89 3 Moderate decrease in GFR 30-59 4 Severe decrease in GFR 15-29 5 Kidney failure <15 (or dialysis) 84 CHOLESTEROL INTERPRETATION: Desirable: Less than 200 MG/DL Borderline-High Risk: 200-239 MG/DL High-Risk: 240 MG/DL and over 85 HDL INTERPRETATION: Undesirable: High Risk: Less than 40 MG/DL Desirable: Low Risk: Greater than 60 MG/DL 86 LDL INTERPRETATION: Low Risk Optimal Level: LDL Less than 100 MG/DL Near or Above Optimal: LDL 100-129 MG/DL Borderline High Risk: LDL 130-159 MG/DL High Risk: LDL 160-189 MG/DL Very High Risk: LDL Greater than 189 MG/DL 87 CHOLESTEROL INTERPRETATION: Desirable: Less than 200 MG/DL Borderline-High Risk: 200-239 MG/DL High-Risk: 240 MG/DL and over 88 HDL INTERPRETATION: Undesirable: High Risk: Less than 40 MG/DL Desirable: Low Risk: Greater than 60 MG/DL 89 LDL INTERPRETATION: Low Risk Optimal Level: LDL Less than 100 MG/DL Near or Above Optimal: LDL 100-129 MG/DL Borderline High Risk: LDL 130-159 MG/DL High Risk: LDL 160-189 MG/DL Very High Risk: LDL Greater than 189 MG/DL 90 Anion gap measurement may be of limited value in the presence of any alkalosis, especially in a combined acid base disorder. . 91 Note change in reference range as of 05/20/08. The change was based on recommendations from the [place] [employer]. 92 Please note change in reference range effective 08 . Procedures Date CPT Code Description Status 01/07/2017 92786 EKG Tracing & Interpretation Completed 04/10/2016 75327 EKG Tracing & Interpretation Completed 08/08/2015 23034 EKG Tracing & Interpretation Completed 03/18/2014 48045 EKG Tracing & Interpretation Completed 08/17/2013 92669 EKG Tracing & Interpretation Completed 03/11/2013 30060 EKG Tracing & Interpretation Completed 11/06/2012 15277 EKG Tracing & Interpretation Completed 11/04/2012 85164 Treadmill Interp/Report Only Completed 11/04/2012 93567 Stress Test Supervsn W/Out I/R Completed 10/21/2012 88482 Mobile Cardiovascular Telemetry Over 24 HR Up To 30 Completed Days 07/31/2012 06020 EKG Tracing & Interpretation Completed 02/06/2012 20052 EKG Tracing & Interpretation Completed 07/13/2011 88076 Rad Shoulder Comp, Min. 2 Views Completed 05/29/2011 15672 Treadmill Interp/Report Only Completed 05/29/2011 29026 Stress Test Supervsn W/Out I/R Completed 05/03/2011 42577 EKG Tracing & Interpretation Completed 07/13/2010 97938 EKG Tracing & Interpretation Completed 02/16/2010 74840 EKG Tracing & Interpretation Completed 09/06/2009 05629 EKG Tracing & Interpretation Completed 08/17/2009 45749 EKG Tracing & Interpretation Completed 05/06/2009 20468 EKG Tracing & Interpretation Completed 10/15/2008 15069 EKG Tracing & Interpretation Completed 10/15/2008 40844 EKG Tracing & Interpretation Completed 07/16/2008 57123 Treadmill Interp/Report Only Completed 07/16/2008 27472 Treadmill Interp/Report Only Completed 07/16/2008 59749 Stress Test Supervsn W/Out I/R Completed 05/13/2008 96872 EKG Tracing & Interpretation Completed 05/13/2008 18465 EKG Tracing & Interpretation Completed 03/12/2008 46734 EKG Tracing & Interpretation Completed 03/12/2008 41649 EKG Tracing & Interpretation Completed 02/19/2008 24138 Treadmill Interp/Report Only Completed 02/19/2008 39132 Stress Test Supervsn W/Out I/R Completed 02/19/2008 57135 Stress Test Supervsn W/Out I/R Completed 10/08/2006 29699 ECHO/Stress Completed 10/08/2006 80040 Stress Test Completed 10/08/2006 96069 Stress Test Completed 10/03/2006 80285 EKG Tracing & Interpretation Completed Encounters Type Date Location Provider CPT E/M Dx Office Visit 09/27/2017 8:00a [facility] [place] [address] L82.1 L57.0 L85.3 Office Visit 06/18/2017 9:15a [facility] Lizzy Blair [address] [facility] NAZIA RN, INTERIOR DESIGN PROJECT MANAGER- Office Visit 03/20/2017 4:10p [facility] [place] [address] L82.1 D22.5 L57.0 L82.0 Office Visit 02/13/2017 9:00a [facility] ADOLPH Canales 78139UMA I10 E66.9 I25.10 Office Visit 01/07/2017 11:00a [facility] Asher Melton M.D. 43126 I47.1 G47.33 I10 I25.10 E66.9 Office Visit 06/12/2016 9:30a [facility] Lizzy Blair 98061 G47.33 Services Of Adithya MANDUJANO RN, [facility] Office Visit 04/10/2016 2:20p [facility] Asher Melton, 80866 I47.1 M.DSil I10 I25.10 E66.9 Office Visit 11/08/2015 9:15a [facility] Nurse Visit 80040 I10 Office Visit 08/08/2015 8:40a [facility] Asher Melton M.D. 44121 I47.1 I25.10 E66.9 Office Visit 06/17/2015 8:15a [facility] Lizzy Blair 97394 327.23 Services Of Adithya MANDUJANO RN [facility] Office Visit 01/03/2015 9:00a [facility] Asher Melton 53489 327.23 M.DSil 414.01 272.0 401.1 427.0 Office Visit 07/13/2014 9:00a [facility] Lizzy Blair 63815 327.23 Services Of Adithya MANDUJANO RN [facility] Office Visit 03/18/2014 8:20a [facility] Asher Melton, 86075 794.31 M.DSil 427.0 414.01 272.0 Office Visit 08/17/2013 9:00a [facility] Asher Melton M.D. 98953 401.1 414.01 427.0 Office Visit 03/11/2013 4:00p [facility] Asher Melton M.D. 31571 401.1 414.01 427.0 Office Visit 11/06/2012 2:40p [facility] Asher Melton 58671 414.01 M.DSil 401.1 427.0 Office Visit 11/04/2012 11:30a [facility] Jinny Brooks, 76215 414.01 M.DSil 794.31 401.1 427.31 v45.82 Office Visit 10/16/2012 9:28a [facility], Nico Luong, 95231 780.2 Hospitalists M.DSil 414.01 453.9 Office Visit 10/15/2012 9:28a [facility], Sandra Handley, 50133 780.2 Hospitalists M.D. 414.01 453.9 Office Visit 07/31/2012 9:00a [facility] Asher Melton M.D. 81739 453.9 414.01 401.1 Office Visit 02/06/2012 9:00a [facility] At Asher Melton, 82857 427.0 [facility] M.DSil 414.01 401.1 271.3 Office Visit 07/13/2011 9:15a [facility], 97079 840.4 C.M.A. M.DSil Office Visit 05/29/2011 10:30a [facility] Asher Melton, 76736 786.50 M.D. 427.0 414.01 Office Visit 05/03/2011 9:00a [facility] Asher Melton 39432 414.01 M.D. 401.1 530.81 427.0 413.9 Office Visit 07/13/2010 9:40a [facility] Asher Melton 87980 414.01 M.D. 401.1 530.81 Office Visit 02/16/2010 9:00a [facility] Asher Melton 89611 414.01 M.D. 786.50 401.1 427.0 Office Visit 09/06/2009 11:20a [facility] Asher Melton 98246 414.01 M.D. 786.50 401.1 427.0 413.9 Office Visit 08/17/2009 9:10a [facility] Asher Melton 67963 414.01 M.D. 427.0 401.1 Office Visit 05/06/2009 8:40a [facility] Asher Melton 20125 414.01 M.D. 427.0 401.1 Office Visit 11/03/2008 10:10a [facility] Asher Melton 97216 414.01 M.D. 427.0 401.1 Office Visit 10/19/2008 9:45a [facility] Nurse Visit 10525 401.1 Office Visit 10/15/2008 9:20a [facility] Asher Melton, 95802 414.01 MSilDSil 427.0 401.1 Office Visit 05/13/2008 11:00a [facility] Asher Melton M.D. 36604 427.0 414.01 401.1 Office Visit 03/12/2008 8:20a [facility] Asher Melton M.D. 70182 427.0 414.01 401.1 Office Visit 02/19/2008 12:00p [facility] Asher Melton M.D. 64061 427.0 786.50 401.1 Office Visit 10/03/2006 9:40a [facility] Asher Melton M.D. 71242 427.0 401.1 Plan of Care Future Appointment(s):03/26/2018 8:00 am - Delbert Brannon MD at [facility] Rwvkvstpfep11/19/2018 8:00 am - Lizzy Blair DNP, RN, INTERIOR DESIGN PROJECT MANAGER-BC at [facility]
--- NOTE | 2017-10-31 08:28 | RAD ---
HISTORY: Acute amnesia COMPARISONS: None TECHNIQUE: Multiple contiguous axial CT scans were obtained of the head without intravenous contrast. FINDINGS: HEMORRHAGE/INFARCT: There is no hemorrhage or acute infarct. MASSES/SHIFT: There is no mass or shift. EXTRA-AXIAL SPACES: There are no extra-axial fluid collections. SULCI AND VENTRICLES: The sulci and ventricles are normal in size and position for the patient's stated age. CEREBRUM: There are no focal parenchymal abnormalities. BRAINSTEM: There are no focal parenchymal abnormalities. CEREBELLUM: There are no focal parenchymal abnormalities. VESSELS: The vessels are grossly normal. PARANASAL SINUSES: There is mucosal thickening of ethmoid air cells and left maxillary sinus. ORBITS: The orbits are unremarkable. BONES AND SOFT TISSUE: No bone or soft tissue abnormalities are noted. OTHER: None IMPRESSION: NO ACUTE INTRACRANIAL PATHOLOGY.
[2017-10-31 08:37] LABS: ABS Basophils 0 10^3/ul (0-0.2); ABS Eosinophils 0.1 10^3/ul (0-0.6); ABS Lymphocytes 1.1 10^3/ul (1.0-4.8); ABS Monocytes 0.5 10^3/ul (0-0.8); ABS Neutrophils 4.7 10^3/ul (1.5-7.7); ABS Nucleated RBC 0 10^3/ul; Hematocrit 47 % (42-52); Hemoglobin 16.1 g/dl (14.0-18.0); Lymphocyte % 17.3 % (25-47); Mean Corpuscular HGB Conc 34 g/dl (31-36); Mean Corpuscular Hemoglobin 32 pg (27-31); Mean Corpuscular Volume 92 fL (80-94); Mean Platelet Volume 8 um3 (7.4-10.4); Nucleated Red Blood Cells % 0.1; Platelet Count 158 10^3/ul (150-450); Red Blood Count 5.09 10^6/ul (4.0-5.4); Red Cell Distribution Width 14 % (10.5-15); White Blood Count 6.4 10^3/ul (3.5-10.8)
[2017-10-31 08:57] LABS: EGFR Non-African American 83.6 (>60)
[2017-10-31] MEDS ORDERED: Aspirin TAB* 325 MG PO ONE (09:13)
[2017-10-31] MEDS ORDERED: LORazepam TAB(*) 1 MG PO ONE (10:04)
[2017-10-31] MEDS ORDERED: amLODIPine TAB* 5 MG PO ONE (12:44)
[2017-10-31] MEDS ORDERED: LORazepam INJ* 2 MG/ML 1 ML VIAL IV PUSH ONE ×2 (13:00→14:22)
[2017-10-31] MEDS: Heparin VIAL(*) 5000 UNITS/ML VIAL (FIVE THOUSAND) SUBCUT SCH ×2 (13:27→21:41)
[2017-10-31] MEDS: Atenolol TAB* 25 MG PO SCH (13:27)
[2017-10-31 13:53] LABS: Urine Appearance Clear; Urine Blood Negative (Negative); Urine Color Yellow; Urine Ketones Negative (Negative); Urine Protein Negative (Negative); Urine Specific Gravity 1.017 (1.010-1.030); Urine Urobilinogen Negative (Negative)
--- NOTE | 2017-10-31 15:05 | RAD ---
HISTORY: Claudication, history of DVT COMPARISONS: August 07, 2016 TECHNIQUE: Multiple transverse and longitudinal ultrasound images were obtained of the bilateral lower extremities from the level of the common femoral vein inferiorly through to the infrapopliteal veins using grayscale, color Doppler, and spectral Doppler imaging with and without compression and with augmentation. FINDINGS: VEINS: There is nonocclusive chronic appearing thrombus of the right popliteal vein, similar to the previous examination. The remainder of the venous system of the bilateral lower extremities is compressible throughout its course, with normal flow on color Doppler imaging and normal response to augmentation on spectral Doppler imaging. SOFT TISSUES: Unremarkable. OTHER FINDINGS: None. IMPRESSION: 1. CHRONIC APPEARING NONOCCLUSIVE THROMBUS OF THE RIGHT POPLITEAL VEIN. 2. NO LEFT LOWER EXTREMITY DEEP VEIN THROMBOSIS.
[2017-10-31] MEDS ORDERED: Perflutren Lipid Microsphere* 3 ML VIAL ONE (16:12)
--- NOTE | 2017-10-31 17:28 | ECHO ---
Patient: TERE DIAZ [facility] Rec#: [id number] : 1950 Date: 10/31/2017 Age: 67y Height: 177.8 cm / 70.0 in Weight: 121.1 kg / 266.9 lbs Sex: M BSA: 2.4 Room#: 436 Admit Date#: 10/31/2017 Type: Inpatient Referring: Xiomara Serrano Reading: Thomas Dawn MD [employer]: Jaqueline Curran RN RDCS CC: Ross Fonseca, IVONNE Transthoracic Echocardiogram Indication: TIA, altered mental status BP: 170/90 HR: 67 Rhythm: NSR with PACs Findings History: CAD, S/P PCI, HTN, ZEHRA with CPAP, SVT, DVT in the past, obesity Technical Comments: The study is technically limited due to poor acoustic windows. The study is technically limited due to patient body habitus. Left Ventricle: The left ventricular chamber size is normal. Mild concentric left ventricular hypertrophy is observed. There is increased basal septal hypertrophy noted without evidence of an increased gradient across the left ventricular outflow tract. Global left ventricular wall motion and contractility are within normal limits. There is normal left ventricular systolic function. The estimated ejection fraction is 60-65%. There is an E to A reversal in the mitral valve flow pattern suggestive of diastolic dysfunction. Left Atrium: The left atrial chamber size is normal. Right Ventricle: The right ventricle is not well visualized. Right Atrium: The right atrial cavity size is normal.The images during the bubble study are suboptimal due to excessive lung tissue interference to comment accurately on the presence or absence of right to left shunting. Aortic Valve: The aortic valve is trileaflet. The aortic valve leaflets are mildly thickened. There is no evidence of aortic regurgitation. There is no evidence of aortic stenosis. Mitral Valve: The mitral valve leaflets are mildly thickened. There is trace to mild mitral regurgitation. There is no evidence of mitral stenosis. Tricuspid Valve: The tricuspid valve leaflets are normal. There is trace tricuspid regurgitation. Unable to estimate the right ventricular systolic pressure. Pulmonic Valve: The pulmonic valve appears normal. There is trace to mild pulmonic regurgitation. There is no pulmonic stenosis. Pericardium: There is no significant pericardial effusion. A pericardial fat pad is visualized. Aorta: There is mild dilatation of the ascending aorta. There is no dilatation of the aortic arch. There is mild dilatation of the aortic root. Pulmonary Artery: The main pulmonary artery is not well visualized. Venous: The venous system is not well visualized. The inferior vena cava is not visualized. Contrast: Normal saline was used as contrast for the bubble study. Images 107 and 108. Definity was used for image enhancement. A total of 5 ml of diluted Definity was given IV. Conclusions The study is technically limited due to poor acoustic windows. The study is technically limited due to patient body habitus. Suboptimal images for interpretation. Mild concentric left ventricular hypertrophy is observed. There is increased asymmetric basal septal hypertrophy noted without evidence of an increased gradient across the left ventricular outflow tract. The estimated ejection fraction is 60-65%. The right atrial cavity size is normal.The images during the bubble study are suboptimal due to excessive lung tissue interference to comment accurately on the presence or absence of right to left shunting. There is trace to mild mitral regurgitation. There is trace tricuspid regurgitation. Unable to estimate the right ventricular systolic pressure. There is mild dilatation of the ascending aorta. There is mild dilatation of the aortic root. No reports of prior studies are offered for comparison. Measurements Name Value Normal Range RVDdMajor (2D) 4.4 cm (2.2 - 4.4) RAd ISD 4CH 5.2 cm (3.4 - 4.9) RA (A4C)W 4 cm (2.9 - 4.6) IVSd (2D) 1.2 cm (0.6 - 1) LVPWd (2D) 1.2 cm (0.6 - 1) LVIDd (2D) 5.2 cm (3.6 - 5.4) Aortic Annulus 1.9 cm (1.4 - 2.6) Ao root diameter (2D) 3.7 cm (2.1 - 3.5) Ascending Ao 3.6 cm (2.1 - 3.4) Aortic arch 2.3 cm (1.8 - 3.4) LA dimension (AP) 2D 3.5 cm (2.3 - 3.8) LAd ISD 4CH 6.1 cm (2.9 - 5.3) LA ISD 4CH W 4.1 cm (2.5 - 4.5) Name Value Normal Range LA ESV SP 4CH (A/L) 66 ml - LA ESV SP 2CH (A/L) 65 ml - LA ESV BP (A/L) 70 ml - LA ESV BP (A/L) index 30 ml/m2 - LA ESV SP 4CH (MOD) 64 ml - LA ESV SP 2CH (MOD) 63 ml - Name Value Normal Range MV E-wave Vmax 0.78 m/sec - MV deceleration time 325 msec - MV A-wave Vmax 1 m/sec - MV E:A ratio 0.74 ratio - LV septal e' Vmax 0.06 m/sec - LV lateral e' Vmax 0.08 m/sec - LV E:e' septal ratio 13 ratio - LV E:e' lateral ratio 9.8 ratio - Name Value Normal Range AV Vmax 1.3 m/sec - AV VTI 27.2 cm - AV peak gradient 6.6 mmHg - AV mean gradient 4.2 mmHg - LVOT Vmax 0.93 m/sec - LVOT VTI 20.8 cm - LVOT peak gradient 3.5 mmHg - LVOT mean gradient 1.9 mmHg - ADELA Vmax 0.49 m/sec - Name Value Normal Range PV Vmax 0.78 m/sec -
--- NOTE | 2017-10-31 19:50 | HP ---
ADMISSION HISTORY AND PHYSICAL: DATE OF ADMISSION: 10/31/17 PRIMARY CARE PHYSICIAN: Ross Fonseca NP. PRIMARY HAND TURNER: Asher Melton MD ATTENDING ON THIS CASE: Kvng Luong MD * (DICTATED BY ARCADIO MEJIA NP) CHIEF COMPLAINT: Period of amnesia and feeling foggy. HISTORY OF PRESENT ILLNESS: This is a very pleasant 67-year-old male patient with a longstanding history of hypertension with accelerated hypertension, coronary artery disease, status post stents x2, history of ablation for AFib and runs of SVT back in 1997, also has a longstanding history of DVT of the right lower extremity, presented with his and emergency medical services for approximately 15-minute period of the patient not knowing where he was, was repeating himself and having amnesia of the incident. The patient is seen in his room now, he states he does have some memory of the incident, remembers he was wandering around, asking questions and not knowing where he was, but he is unsure of the events leading up to that incident. The patient had a CAT scan in the emergency department that did not show CVA; however, he was admitted to further elucidate this transient global amnesia. PAST MEDICAL HISTORY: As stated above, in addition to he also has: 1. Hyperlipidemia. 2. Moderate obesity. PAST SURGICAL HISTORY: Significant for: 1. Hernia repair. 2. Bilateral wrist surgeries 20 years ago. 3. Right total knee replacement, 2006. MEDICATIONS: At home include: 1. Allopurinol 300 mg p.o. daily. 2. Atenolol 25 mg daily. 3. Atorvastatin 5 mg daily. 4. Omeprazole 40 mg daily. 5. Verapamil 120 mg b.i.d. 6. Low-dose aspirin 81 mg daily. 7. Nitroglycerin 0.4 mg as needed. 8. [place]-3 fatty acids 1200 mg 2 times a day. ALLERGIES: He has no known drug allergies. FAMILY HISTORY: Both parents with coronary artery disease, father with bypass surgery. SOCIAL HISTORY: The patient does not smoke, drinks alcohol rarely. He does not report any illicit drug use. He lives at home with his . He is with 2 grown children. REVIEW OF SYSTEMS: A 10-point review of systems is negative except as noted in the above HPI. PHYSICAL EXAMINATION GENERAL: The patient is awake, and alert, ambulatory, in no acute distress. VITAL SIGNS: Currently, blood pressure 170/90, heart rate 95, O2 saturation 94 % on room air, respiratory rate 16. HEENT: The patient is atraumatic, normocephalic. PERRLA with nonicteric sclerae. NECK: Supple, nontender. No JVD noted. No thyromegaly appreciated. No carotid bruits auscultated. LUNGS: Clear bilaterally to auscultation with no wheezing, rhonchi, or rales. CARDIOVASCULAR: S1, S2 are present. Rate is regular. He is in the 70s on telemetry, currently, however, upon auscultation, he did have some irregular beats. No murmurs, gallops, or rubs appreciated. ABDOMEN: Soft, nontender, nondistended. Moderately obese with positive bowel sounds in all 4 quadrants. No hepatosplenomegaly appreciated. : Deferred. MUSCULOSKELETAL: There is no clubbing. No cyanosis. No edema. He does have palpable calf pain in the left lower extremity. He has +2 distal pulses palpable. Brisk cap refill. Gross motor and sensation are intact. Again, he is ambulatory. NEUROLOGIC: He is grossly intact at this point with no focal deficits. He does not present with any gaze. He is alert and oriented x3. He presents with no pronator drift or further signs of cerebral infarct. PSYCHIATRIC: He is cooperative and appropriate. LABORATORY DATA: WBC is 6.4, RBC is 5.09, hemoglobin 16.1, hematocrit 47, MCV 92, MCH 32, platelets 158,000. Sodium 140, potassium 4.1, chloride 108, carbon dioxide 24, BUN 17, creatinine 0.91, GFR 83.6, glucose 138, lactic acid 2.3, calcium 9.4, bilirubin 1.30, AST 20, ALT 23, alk phos 55. Troponin is 0.00. Total protein 7, albumin 4.2. IMAGING: CAT scan of the brain from this morning shows no acute intracranial pathology. EEG was performed, report is pending. IMPRESSION: This is a 67-year-old male, who is presenting with what is likely a transient global amnesia; however, given his extensive cardiac history and also with some new complaints of palpitations and calf pain, I am concerned that the patient also has his underlying atrial fibrillation returning or some other etiology at this point. The patient has been admitted. His EEG has been completed. He is pending for an MRI; however, the patient is claustrophobic. He had 1 mg of Ativan p.o., which did not help. He will get 2 mg of Ativan IV prior to his procedure. For his accelerated hypertension, I have added Norvasc 10 mg now that will be monitored. Being that his old deep venous thrombosis was in his right leg, he has not been on any anticoagulation since; however, he is having claudication in the left calf and some palpable pain on the left calf. We will do bilateral ultrasound of the femoral veins of the legs to ensure he does not have return of deep venous thrombosis or a new one. He is currently on telemetry. However, with his palpitations just prior to this event and then just after the patient was stating he felt additional palpitations, we will do a followup echocardiogram to see if there are any changes there. He has not had an echo in quite some time. Also, recheck his lipid profile in the morning. We will do fasting lipids. I think it will be a good idea at this point if we involve Neurology as soon as we get back the results of the MRI and the EEG, and also after we review the rest of his cardiac workup, talk with Dr. Asher Melton, his lambskin trimmer and evaluate for any further recommendations. At this time, DVT prophylaxis has been provided with subcu heparin. The patient is a full code. His healthcare proxy is his , Regan. This plan of care has been discussed with Dr. Luong, who is in agreement. Expected plan of stay is likely 2 days or more. ARCADIO MEJIA, IVONNE [id number]/CPS #: [id number] AAKASH
--- NOTE | 2017-10-31 20:06 | RAD ---
INDICATION: Altered mental status. COMPARISON: Comparison is made with a prior CT of the brain from October 31, 2017. TECHNIQUE: Sagittal T1, axial T1, T2, susceptibility, FLAIR and diffusion weighted images were obtained. FINDINGS: The ventricles, cisterns and sulci appear to be within normal limits. No significant focal abnormality or mass effect is seen. No areas of restricted diffusion are present. There is no evidence for infarct or hemorrhage. There is mild mucosal thickening within the ethmoid and maxillary sinuses. IMPRESSION: 1. NO EVIDENCE FOR ACUTE INTRACRANIAL ABNORMALITY. 2. FINDINGS SUGGESTIVE OF MILD CHRONIC SINUSITIS.
--- NOTE | 2017-10-31 20:49 | CONS ---
CONSULTATION REPORT: DATE OF CONSULT: 10/31/17 LOCATION: Patient is an inpatient. REQUESTING PHYSICIAN: Srini Bello MD REASON FOR CONSULT: Possible transient global amnesia. HISTORY OF PRESENT ILLNESS: Jv Machado is a 67-year-old man with a history of coronary artery disease, myocardial infarction, status post stents, morbid obesity as well as history of arrhythmias including SVT and reportedly atrial fibrillation, status post ablation, who presented to the emergency room this morning after experiencing an episode of confusion. At the time of my evaluation, the was not in the room, but the patient reports that he woke around 5:30 in the morning and got in the shower without eating breakfast. At some point in the shower, he became confused and he recalls getting out of the shower and then standing in the middle of his living room half dressed and his asked him why he was just standing there and his reply was that he did not know. He maintains that he remembers most of the events that occurred this morning and that he was disoriented and felt confused, but cannot give any real details surrounding these events. He denies noticing any extremity shaking, extremity weakness or numbness or facial asymmetry. Reportedly, his balance was okay and there were no clear speech changes. He recalls his ambulance ride here. He also recalls his checking his blood pressure and states that his heart rate was about 120 and his systolic blood pressure was over 200. He denies missing any of his antihypertensive medications. To me, he denied any cardiac symptoms, but apparently reported to Xiomara Espinal, who admitted him that he had some palpitations around this time. He denies any history of seizure. He now feels back to normal. There is apparently some history also of possible repetitive questioning, but the patient cannot recall what he was asking his and again, his was not available at the time of my evaluation. Otherwise, he also apparently has a history of an old DVT in the right leg and had been reporting some cramping in his left leg as well as some possible swelling. He and his were planning on going to [place] today to visit their new granddaughter. He denies any new stress in his life, though states that he has his father living with him for the past year and half after his mother and this can get stressful at times. He denies any physical exertion today, which might have triggered an episode of TGA, or any sexual activity. PAST MEDICAL HISTORY: 1. Coronary artery disease. 2. Myocardial infarction, status post stents. 3. History of right lower extremity DVT. 4. Arrhythmias including SVT and reportedly atrial fibrillation, status post ablation. 5. History of GERD. 6. Hyperlipidemia. HOME MEDICATIONS: 1. Omeprazole 40 mg daily. 2. Verapamil 120 mg twice daily. 3. Atorvastatin 5 mg daily. 4. Atenolol 25 mg daily. 5. Aspirin 81 mg daily. 6. Allopurinol 300 mg daily. 7. Fish oil 1200 mg twice daily. 8. Nitroglycerin as needed. ALLERGIES: No known drug allergies. FAMILY HISTORY: His father is alive at 90 years old. There is a history of heart disease and myocardial infarctions. His mother had Alzheimer's and cancer. His sister of cancer a couple of years ago. He denies any known history of stroke or other neurologic disorders in the family. SOCIAL HISTORY: He is retired from [employer]. He is . He does not smoke. He drinks alcohol occasionally and denies illicit drug use. He and his were planning on going to [place] for a couple of months next week as they typically do. PHYSICAL EXAMINATION: Vital Signs: Temperature 97.4, blood pressure 170/90 with a heart rate of 95. More recently, his heart rate is 68 on telemetry. Oxygen saturation 94% on room air. On general examination, he is a pleasant morbidly obese man, in no acute distress. He has a chavez complexion. He has abdominal adiposity. He is resting comfortably in his bed. His heart is in a regular rate and rhythm with no murmurs, rubs, or gallops. Lungs are clear to auscultation bilaterally. There are no carotid bruits. Extremity exam is notable for multiple precancerous skin lesions for which he is under the care of Dermatology. On neurologic examination, he is fully awake, alert, and oriented. Speech is fluent without dysarthria or aphasia. On cranial nerve exam, pupils are equal, round, and reactive from 3 to 2 mm bilaterally. Versions are full without nystagmus. Billings are full to finger counting. His face is symmetric aside from some left ptosis which he says is at his baseline for years. Face is otherwise symmetric and full strength. Facial sensation is full and symmetric. Hearing is intact to finger rub. The palate elevates symmetrically and tongue is midline. On motor examination, he has normal bulk and tone in the upper and lower extremities. Strength is full both proximally and distally with no pronator drift. Sensation is intact to light touch and pinprick in the upper and lower extremities. Reflexes are 2+ throughout with downgoing toes. [id number] was intact. His gait is narrow based and stable and he is able to heel and toe walk. DIAGNOSTIC STUDIES/LAB DATA: CBC is overall unremarkable aside from slightly elevated MCH of 32 and slightly low lymphocyte percentage of 17.3%. His chemistry panel was notable for a glucose of 138, which according to his report was fasting, a total bilirubin of 1.3 and a lactate of 2.3. His urinalysis was negative. A noncontrast brain CT was personally reviewed and showed no evidence of any acute abnormality and no clear intraparenchymal abnormalities. He had a Doppler study of his lower extremities, which showed a chronic appearing right DVT and no DVT on the left. His EEG was a normal study. His MRI is pending. They attempted to take him, but secondary to claustrophobia, he needs to go back later after getting IV Ativan. IMPRESSION AND PLAN: Jv Machado is a 67-year-old man with multiple cardiovascular risk factors and a past history of myocardial infarction, who presented to the emergency department after an episode of confusion this morning lasting approximately 1 hour. During this episode, his blood pressure was apparently quite elevated and he was tachycardic and possibly was experiencing some palpitations as well. The differential would include transient hypoperfusion secondary to cardiac arrhythmia, transient global amnesia, seizure, hypertensive encephalopathy, and less likely transient ischemic attack. His EEG showed no significant abnormalities. He is going to undergo MRI scan of the brain. He is currently on cardiac monitoring. He is also ordered for an echocardiogram. Fasting lipid profile will be checked in the morning. He will be continued on his aspirin at this point. I will speak with his when she arrives to get some further details surrounding this episode to see if the history is more or less consistent with transient global amnesia though the abnormalities in his vital signs may argue against that. I also note that his lactate is slightly elevated though there is no report of any kind of convulsive activity and I wonder if this is more an artifact of the blood draw. Thank you for this consultation. [id number]/[facility] #: [id number] ADDENDUM: After this dictation I spoke with the patient's who described him repeatedly asking what they were going to do that day and he also kept saying that he had had a dream the night before that this would happen, and that this was happening because of his dream, or he was "in" the dream. He continued to say this even in the ED. She recalls his pulse being in the 120s but thinks his SBP was around 180 or 190. There were no focal deficits, he just seemed to be in a "fog". Given her description of events, potentially more consistent with transient global amnesia if all testing is negative. AAKASH
[2017-10-31] MEDS ORDERED: Verapamil TAB* 120 MG PO SCH (21:00)
[2017-10-31] MEDS ORDERED: Pneumococcal *Vac Polyvalent 0.5 ML VIAL IM ONE (21:00)
--- NOTE | 2017-10-31 22:57 | EEG ---
ELECTROENCEPHALOGRAPHY: DATE OF STUDY: 10/31/17 LOCATION: The patient is an inpatient. ORDERING PHYSICIAN: Dr. Luong. CLINICAL PROBLEM: This is a 67-year-old man, who had an episode of confusion around 6 a.m. this morning. He had acute memory loss after taking a shower. His found him wandering around the house unsure what he was doing. He has no memory of the episode. He states he felt like he was in a dream state. EEG is requested to evaluate for epileptiform abnormalities. MEDICATIONS: 1. Ativan 1 mg given approximately 45 minutes before the study for an MRI. 2. The patient also takes aspirin. REPORT: The waking background showed appropriate organization with clearly defined anterior to posterior voltage and frequency gradients. There was a well defined posterior dominant rhythm of 8.5 to 9 Hz, when the patient was aroused from his drowsy/sleep state, which was symmetrical and showed normal reactivity. Anteriorly, there was an expected pattern of lower voltage, irregular, mixed faster frequencies. There was excess beta activity noted, consistent with medication effect. Throughout the majority of the study, the patient was in a drowsy/slight sleep state. The sleep background was appropriately organized with well-developed sleep spindles, vertex waves, and occasional K complexes. The sleep transition showed appropriate morphology and were bilaterally synchronous and symmetrical. Throughout the recording, there were no epileptiform discharges, focal features , paroxysmal features or significant interhemispheric asymmetries. CLINICAL IMPRESSION: This is a normal waking and asleep EEG. There are no epileptiform abnormalities. [id number]/[facility] #: [id number] MTDD
[2017-11-01] MEDS: Heparin VIAL(*) 5000 UNITS/ML VIAL (FIVE THOUSAND) SUBCUT SCH (06:05)
[2017-11-01] MEDS ORDERED: Acetaminophen TAB* 325 MG PO PRN (06:28)
[2017-11-01] MEDS ORDERED: Omeprazole CAP* 20 MG PO SCH (07:30)
[2017-11-01] MEDS ORDERED: Acetaminophen TAB* 325 MG ONE (07:42)
[2017-11-01] MEDS: Atenolol TAB* 25 MG PO SCH (07:46)
[2017-11-01] MEDS ORDERED: Allopurinol TAB* 300 MG PO SCH (09:00)
[2017-11-01] MEDS ORDERED: Verapamil SR TAB* 240 MG PO SCH (09:00)
[2017-11-01] MEDS ORDERED: Atorvastatin* 10 MG TAB PO SCH ×2 (09:00→18:00)
--- NOTE | 2017-11-01 12:38 | PN ---
Subjective Date of Service: 11/01/17 Interval History: Pt is feeling well today. He states his memory is back to normal. His states he still does not recall some of the events of yesterday. Objective Active Medications: Acetaminophen (Tylenol Tab*) 650 mg PO Q6H PRN PRN Reason: FEVER/PAIN Last Admin: 11/01/17 07:46 Dose: 650 mg Allopurinol (Zyloprim Tab*) 300 mg PO DAILY [facility] Last Admin: 11/01/17 07:46 Dose: 300 mg Atenolol (Tenormin Tab*) 25 mg PO DAILY [facility] Last Admin: 11/01/17 07:46 Dose: 25 mg Atorvastatin Calcium (Lipitor*) 5 mg PO DAILY@1800 [facility] Heparin Sodium (Porcine) (Heparin Vial(*)) 5,000 units SUBCUT Q8HR [facility] Last Admin: 11/01/17 06:05 Dose: 5,000 units Omeprazole (Prilosec Cap*) 40 mg PO DAILY@0730 [facility] Last Admin: 11/01/17 07:46 Dose: 40 mg Verapamil HCl (Calan Sr Tab*) 120 mg PO BID [facility] Last Admin: 11/01/17 08:57 Dose: 120 mg Vital Signs - 8 hr 11/01/17 11/01/17 07:40 07:54 Temperature 97.5 F Pulse Rate 69 Respiratory 16 16 Rate Blood Pressure 152/92 (mmHg) O2 Sat by Pulse 96 Oximetry Oxygen Devices in Use Now: None Appearance: Middle aged male sitting up on the edge of the bed eating lunch, NAD Eyes: No Scleral Icterus Ears/Nose/Mouth/Throat: Mucous Membranes Moist Respiratory: Symmetrical Chest Expansion and Respiratory Effort, Clear to Auscultation Cardiovascular: NL Sounds; No Murmurs; No JVD, RRR, No Edema Abdominal: NL Sounds; No Tenderness; No Distention Extremities: No Clubbing, Cyanosis Skin: No Rash or Ulcers, No Nodules or Sclerosis Neurological: Alert and Oriented x 3 Result Diagrams: 10/31/17 08:25 10/31/17 08:25 Assess/Plan/Problems-Billing Mr Ayala is a 67 yo M who has a h/o SVT s/p ablation, R LE DVT, CAD, HTN and HLD who presented to the ER with c/o fogginess and memory lapses. - Patient Problems (1) TGA (transient global amnesia) Current Visit: Yes Status: Acute Code(s): G45.4 - TRANSIENT GLOBAL AMNESIA SNOMED Code(s): 872960048 Comment: Today the patient is back to baseline. He still has amnesia about certain events from yesterday. MRI negative for CVA, echo poor quality but no significant findings. Will touch base with Dr. Golden to see if anything further is needed. On admission the patient was mildly tachycardic, he has a h/o SVT. ? SVT leading to poor perfusion as cause of memory lapse, ? hypertensive encephalopathy (the patient's states he was very hypertensive at the time of the memory lapse yesterday). He may benefit from an event monitor especially if he continues to have intermittent symptoms. (2) HTN (hypertension) Current Visit: Yes Status: Acute Code(s): I10 - ESSENTIAL (PRIMARY) HYPERTENSION SNOMED Code(s): 00140313 Comment: BP is under acceptable control. Continue verapamil and atenolol. (3) H/O deep venous thrombosis Current Visit: Yes Status: Acute Code(s): Z86.718 - PERSONAL HISTORY OF OTHER VENOUS THROMBOSIS AND EMBOLISM SNOMED Code(s): 511761171 Comment: Repeat venous doppler shows questionable R popliteal vein thrombus- previous doppler ?'ed if this was just a sequelae of his previous DVT. No need for anticoagulation at this point. (4) DVT prophylaxis Current Visit: Yes Status: Acute Code(s): WTR2984 - SNOMED Code(s): 520902204 Comment: SQ heparin (5) Full code status Current Visit: Yes Status: Acute Code(s): Z78.9 - OTHER SPECIFIED HEALTH STATUS SNOMED Code(s): 391457906
[2017-11-01 13:29] VITALS: BP 144/88
--- NOTE | 2017-11-01 21:57 | DS ---
CC: Ross Fonseca NP; Dr. Melton * DISCHARGE SUMMARY: DATE OF ADMISSION: 10/31/17 DATE OF DISCHARGE: 11/01/17 PRIMARY CARE PROVIDER: Ross Fonseca NP. ASSOCIATE PROFESSOR OF BIBLICAL STUDIES: Dr. Melton. PRINCIPAL DIAGNOSIS: Probable transient global amnesia. SECONDARY DIAGNOSES: 1. History of supraventricular tachycardia, status post ablation. 2. Coronary artery disease. 3. Hypertension. 4. History of right lower extremity deep venous thrombosis. DISCHARGE MEDICATIONS: 1. Allopurinol 300 mg p.o. daily. 2. Atenolol 25 mg p.o. daily. 3. Lipitor 5 mg p.o. daily. 4. Omeprazole 40 mg p.o. daily. 5. Verapamil 120 mg p.o. twice daily. 6. Aspirin 81 mg p.o. daily. 7. Nitroglycerin 0.4 mg SL q.5 minutes p.r.n. chest pain. 8. [place]-3 fatty acids 1200 mg p.o. twice daily. HOSPITAL COURSE: Mr. Machado is a 67-year-old male who has the above history, who presented to the emergency room with complaints of memory lapse and feeling foggy. The patient does note that he hit his head approximately 1 day prior to this issue. The patient's noted that for approximately 15 minutes the patient did not know where he was and he kept repeating himself. The patient was admitted for possible transient global amnesia. The patient underwent numerous tests including a CT scan of the brain, which revealed no acute intracranial pathology. He also underwent MRI of the brain, which revealed no evidence for acute intracranial abnormality and findings suggestive of mild chronic sinusitis. Transthoracic echocardiogram was performed, which was a poor study due to the patient's body habitus; however, increased asymmetric basal septal hypertrophy was noted without evidence of an increased gradient across the LV outflow tract. The estimated ejection fraction is 60% to 65%. The right atrial cavity size is normal. Images during the bubble study are suboptimal due to excessive lung tissue interference to comment accurately on the presence or absence of [id number]-rh-[id number] shunting. There was trace to mild mitral regurgitation and trace tricuspid regurgitation noted. There was mild dilation of the ascending aorta and mild dilation of the aortic root. The patient given his history of DVT also had a venous Doppler of the right lower extremity, which revealed chronic appearing nonocclusive thrombus of the right popliteal vein. The patient also underwent EEG, which was a normal awake and asleep EEG. No epileptiform abnormalities were noted. The patient was seen in consultation by Dr. Golden, who initially had a more extensive differential; however, after speaking with the patient's is thinking that likely the patient's symptoms are most consistent with transient global amnesia. On the day of discharge, the patient is back to his baseline. Of note, the patient did state that he took a very hot shower on the morning prior to this event. It was also noted by his that his heart rate was elevated in the 120s and that his blood pressure had spiked very high. The patient questions if maybe this has contributed. At this point, the patient is going to be discharged home ; however, if he has any recurrent symptoms, an event monitor may be helpful. I have also recommended to the patient that he re-present to the emergency room if he has any more symptoms similar to what he presented with. FOLLOWUP CONCERNS: The patient is being discharged home today, 11/01/17. ACTIVITY LEVEL: As tolerated. DIET: Heart-healthy. CONDITION ON DISCHARGE: Stable. FOLLOWUP: The patient is to follow up with Ross Fonseca in the next 4 to 7 days. TIME SPENT: Thirty-five minutes was spent discharging this patient. [id number]/[facility] #: [id number] AAKASH
--- NOTE | 2017-11-03 13:25 | ED ---
Ector Keith Stephanie, scribed for Srini Bello MD on 10/31/17 at 0842 . Neurological HPI - HPI Summary HPI Summary: The pt is a 67 y/o M BIBA with c/o memory loss that occurred at 05:30 today. Per , the pt woke up and took a shower and wandered aimlessly throughout the house but did not remember anything he did. The pt states that he was in a fog. Per , the pt has made references to a dream he had last night but he cannot recall the dream. Per , the pt does not remember the events that occurred yesterday throughout the day. The pt denies dizziness, [place] and lightheadedness. The pt reports that he currently feels normal. - History of Current Complaint Chief Complaint: EDNeurologicalDeficit Stated Complaint: LOSS OF MEMORY Time Seen by Provider: 10/31/17 08:03 Hx Obtained From: Patient, Family/Technical Solutions Director - Onset/Duration: Sudden Onset, Started hours ago - 3, Resolved Timing: Constant Pain Intensity: 0 Pain Scale Used: 0-10 Numeric Aggravating: Nothing Alleviating: Nothing Associated Signs and Symptoms: Positive: Memory Loss. Negative: Headache, Dizziness, Lightheadness - Allergy/Home Medications Allergies/Adverse Reactions: Allergies Allergy/AdvReac Type Severity Reaction Status Date / Time No Known Allergies Allergy Verified 10/31/17 07:27 Home Medications: Home Medications Verapamil HCl [Verapamil HCl ER] 120 mg PO BID 10/31/17 [History Confirmed 10/31] PMH/Surg Hx/FS Hx/Imm Hx Endocrine/Hematology History: Denies: Hx Diabetes Cardiovascular History: Reports: Hx Angina, Hx Coronary Artery Disease, Hx Hypercholesterolemia, Hx Hypertension Denies: Hx Myocardial Infarction, Hx Valvular Heart Disease Respiratory History: Reports: Hx Sleep Apnea - current CPAP user Denies: Hx Asthma, Hx Chronic Obstructive Pulmonary Disease (COPD) GI History: Reports: Hx Gastroesophageal Reflux Disease - omeprazole - Surgical History Surgery Procedure, Year, and Place: cardiac cath, cardiac ablations, stent x2 Infectious Disease History: No Infectious Disease History: Denies: Traveled Outside the [place] in Last 30 Days - Family History Known Family History: Positive: Cardiac Disease - Social History Occupation: Retired Lives: With Family Alcohol Use: Occasionally Substance Use Type: Reports: None Smoking Status (MU): Never Smoked Tobacco Review of Systems Negative: Fever, Chills Negative: Erythema Negative: Sore Throat Negative: Chest Pain Negative: Shortness Of Breath, Cough Negative: Abdominal Pain, Vomiting, Nausea Negative: dysuria, hematuria Negative: Myalgia, Edema Negative: Rash Neurological: Other - Positive: memory loss, Negative: dizziness, lightheadedness Negative: Headache All Other Systems Reviewed And Are Negative: Yes Physical Exam - Summary Physical Exam Summary: Constitutional: Well-developed, Well-nourished, Alert. (-) Distressed Skin: Warm, Dry HENT: Normocephalic; Atraumatic Eyes: Conjunctiva normal Neck: Musculoskeletal ROM normal neck. (-) JVD, (-) Stridor, (-) Tracheal deviation Cardio: Rhythm regular, rate normal, Heart sounds normal; Intact distal pulses; The pedal pulses are 2+ and symmetric. Radial pulses are 2+ and symmetric. (-) Murmur Pulmonary/Chest wall: Effort normal. (-) Respiratory distress, (-) Wheezes, (-) Rales Abd: Soft. (-) Tenderness, (-) Distension, (-) Guarding, (-) Rebound Musculoskeletal: (-) Edema Lymph: (-) Cervical adenopathy Neuro: Alert, Oriented x3, Strength normal, Cranial nerves II-XII are grossly intact. (-) Dysmetria, (-) Nystagmus, (-) Ataxia by finger to nose testing, (-) Sensory deficit. Psych: Mood and affect Normal Triage Information Reviewed: Yes Vital Signs On Initial Exam: Initial Vitals BP 162/93 10/31/17 07:24 Vital Signs Reviewed: Yes Diagnostics - Vital Signs Vital Signs Temp Pulse Resp BP Pulse Ox 10/31/17 08:00 104 18 164/102 96 10/31/17 07:30 101 15 160/94 96 10/31/17 07:27 103 18 97 10/31/17 07:25 98.4 F 105 20 162/93 97 10/31/17 07:24 162/93 - Laboratory Result Diagrams: 10/31/17 08:25 10/31/17 08:25 Lab Statement: Any lab studies that have been ordered have been reviewed, and results considered in the medical decision making process. - CT Brain CT Interpretation: No Acute Changes CT Interpretation Completed By: Radiologist - NO ACUTE INTRACRANIAL PATHOLOGY. - EKG 08:26 Cardiac Rate: NL EKG Rhythm: Sinus Rhythm - 96 BPM EKG Interpretation: No STEMI, 1st degree AV block Course/Dx - Course Course Of Treatment: Given sign cardiovascular and cerebrovascular risk factors , the pt should be admitted to rule out TIA. Dr. Luong accepted the pt for admission. - Diagnoses Provider Diagnoses: TIA (transient ischemic attack), Transient global amnesia - Physician Notifications Discussed Care Of Patient With: Nico Luong - Dr. Luong agrees to admit the pt. Instructed by Provider To: Admit As Inpatient Discharge - Discharge Plan Condition: Stable Disposition: ADMITTED TO [facility] Patient Education Materials: Transient Global Amnesia (ED), Transient Ischemic Attack (ED) Referrals: Ross Fonseca, MATERIAL HANDLER 1ST SHIFT [Primary Care Provider] - The documentation as recorded by the Ector patel Stephanie accurately reflects the service I personally performed and the decisions made by Eugenia sheppard Jerry, MD.
== END 2017-11-01 13:25 | disposition home or self-care (01) ==
LOC: ED 07:18 → MEDTELE 09:52
PROVIDERS: ADMIT Internal Medicine; ATTEND Internal Medicine
DX: G45.4 Transient global amnesia (principal); I10 Essential (primary) hypertension; Z86.718 Personal history of other venous thrombosis and embolism; Z78.9 Other specified health status; I25.10 Atherosclerotic heart disease of native coronary artery without angina pectoris; I25.2 Old myocardial infarction; Z87.19 Personal history of other diseases of the digestive system; E78.5 Hyperlipidemia, unspecified; Z79.82 Long term (current) use of aspirin
CPT/HCPCS: 36415; 70450; 70551; 80053; 80061; 81003; 83605; 84484; 85025; 90471; 90732; 93005; 93306; 93970; 95819; 96374; 99284; A9270-GY; C8929; G0009; G0378; J1644; J2060

== ENCOUNTER 2018-09-27 12:35 | Observation (INO) | payer MEDICARE ==
--- NOTE | 2018-09-27 13:05 | ED ---
Altered Mental Status - HPI Summary HPI Summary: A 68 y/o M presents to ED with AMS first noticed approx 1230 this date by patient's . Pt states he doesn't remember taking a car trip yesterday, nor events from earlier today. Pt had a similar episode last year, dx: transient global amnesia. - History Of Current Complaint Chief Complaint: EDAltMentalStatus Stated Complaint: AMS Time Seen by Provider: 09/27/18 12:43 Hx Obtained From: Patient, Family/Information Systems Consultant - Onset/Duration: Still Present Timing: Constant Character: Confusion - Allergies/Home Medications Allergies/Adverse Reactions: Allergies Allergy/AdvReac Type Severity Reaction Status Date / Time No Known Allergies Allergy Verified 10/31/17 07:27 PMH/Surg Hx/FS Hx/Imm Hx Endocrine/Hematology History: Denies: Hx Diabetes Cardiovascular History: Reports: Hx Angina, Hx Coronary Artery Disease, Hx Hypercholesterolemia, Hx Hypertension Denies: Hx Myocardial Infarction, Hx Pacemaker/ICD, Hx Valvular Heart Disease Respiratory History: Reports: Hx Sleep Apnea - current CPAP user Denies: Hx Asthma, Hx Chronic Obstructive Pulmonary Disease (COPD) GI History: Reports: Hx Gastroesophageal Reflux Disease - omeprazole Musculoskeletal History: Reports: Hx Arthritis - ankles and feet Sensory History: Denies: Hx Contacts or Glasses, Hx Hearing Aid Opthamlomology History: Denies: Hx Contacts or Glasses Psychiatric History: Denies: Hx Panic Disorder - Cancer History Cancer Type, Location and Year: Squamous Cell Carcinoma - skin Hx Chemotherapy: Yes - topical 5FU - Surgical History Surgery Procedure, Year, and Place: cardiac cath, cardiac ablations, stent x2 Hx Anesthesia Reactions: No Infectious Disease History: No Infectious Disease History: Denies: Traveled Outside the [place] in Last 30 Days - Family History Known Family History: Positive: Cardiac Disease - Social History Alcohol Use: Occasionally Alcohol Amount: 2-3 beers per day Substance Use Type: Reports: None Smoking Status (MU): Never Smoked Tobacco Review of Systems Negative: Fever Psychological: Other - pos: AMS All Other Systems Reviewed And Are Negative: Yes Physical Exam - Summary Physical Exam Summary: Appearance: The patient is well-nourished in no acute distress and in no acute pain. Skin: The skin is warm and dry and skin color reflects adequate perfusion. HEENT: The head is normocephalic and atraumatic. The pupils are equal and reactive. The conjunctivae are clear and without drainage. Nares are patent and without drainage. Mouth reveals moist mucous membranes and the throat is without erythema and exudate. The external ears are intact. The ear canals are patent and without drainage. The tympanic membranes are intact. Neck: the neck is supple with full range of motion and non-tender. There are no carotid bruits. There is no neck vein distension. Respiratory: Chest is non-tender. Lungs are clear to auscultation and breath sounds are symmetrical and equal. Cardiovascular: Heart is regular rate and rhythm. There is no murmur or rub auscultated. There is no peripheral edema and pulses are symmetrical and equal. Abdomen: The abdomen is soft and non-tender. There are normal bowel sounds heard in all four quadrants and there is no organomegaly palpated. Musculoskeletal: There is no back tenderness noted. Extremities are non-tender with full range of motion. There is good capillary refill. There is no peripheral edema or calf tenderness elicited. Neurological: Patient is alert and oriented to person, place and time. The patient has symmetrical motor strength in all four extremities. Cranial nerves are grossly intact. Deep tendon reflexes are symmetrical and equal in all four extremities. Psychiatric: The patient has an appropriate affect and does not exhibit any anxiety or depression. Triage Information Reviewed: Yes Vital Signs On Initial Exam: Initial Vitals Temp Pulse Resp BP Pulse Ox 98.7 F 95 18 176/103 96 09/27/18 12:39 09/27/18 12:39 09/27/18 12:39 09/27/18 12:39 09/27/18 12:39 Vital Signs Reviewed: Yes - [place] Coma Scale Best Eye Response: 4 - Spontaneous Best Motor Response: 6 - Obeys Commands Best Verbal Response: 5 - Oriented Coma Scale Total: 15 Diagnostics - Vital Signs Vital Signs Temp Pulse Resp BP Pulse Ox 09/27/18 12:39 98.7 F 95 18 176/103 96 - Laboratory Result Diagrams: 09/27/18 13:45 09/27/18 13:46 Lab Statement: Any lab studies that have been ordered have been reviewed, and results considered in the medical decision making process. - Radiology CXR Radiology Interpretation Completed By: Radiologist Summary of Radiographic Findings: IMPRESSION: #. Interval resolution of previous LEFT basilar airspace consolidation. #. No evidence for acute intrathoracic disease. ED provider has reviewed this report. - CT Brain CT CT Interpretation Completed By: Radiologist Summary of CT Findings: IMPRESSION: #. No acute abnormality of the brain evident. #. Suggestion of mild cerebellar atrophy without significant change. #. Opacification of the RIGHT sphenoid sinus new compared with the prior exam. ED provider has reviewed this report. - EKG 1308 Cardiac Rate: NL - 90 bpm EKG Rhythm: Sinus Rhythm Summary of EKG Findings: LAD National Institutes Of Health - NIH Scale Level of Consciousness: Alert/Keenly Responsive Ask Patient the Month and His/Her Age: Both Correct Ask Pt to Open/Close Eyes and Environmental Health Technologist/Release Non-Paretic Hand: Both Correctly Best Gaze (Only Horizontal Eye Movement): Normal Visual Field Testing: No Visual Loss Facial Paresis-Pt to Smile & Close Eyes or Grimace Symmetry: Normal/Symmetrical Motor Function - Right Arm: No Drift-Holds 10 Seconds Motor Function - Left Arm: No Drift-Holds 10 Seconds Motor Function - Right Leg: No Drift-Holds 10 Seconds Motor Function - Left Leg: No Drift-Holds 10 Seconds Limb Ataxia-Must be out of Proportion to Weakness Present: Absent Sensory (Use Pinprick to Test Arms/Legs/Trunk/Face): Normal Best Language (Describe Picture, Name Items): No Aphasia Dysarthria (Read Several Words): Normal Extinction and Inattention: No Abnormality Total Score: 0 Altered Mental Statu Course/Dx - Course Course Of Treatment: Mr. Machado presented with a fairly sudden onset at home this morning of difficulty remembering events of yesterday and this morning. By the time he arrived here he was making memories and remembering some of the events earlier. His NIH stroke scale was 0 and clinically I did not think this represented a stroke. It could represent transient global amnesia or a metabolic problem. His initial workup was negative and I spoke with Drs. Worthington and Ender for admission. - Diagnoses Provider Diagnoses: Acute confusional state - Provider Notifications Discussed Care Of Patient With: Sandra aHndley - hospitalist Time Discussed With Above Provider: 15:22 Instructed by Provider To: Admit As Inpatient - Critical Care Time Critical Care Time: 30-74 min Discharge - Sign-Out/Discharge Documenting (check all that apply): Patient Departure - ADMIT - Discharge Plan Condition: Stable Disposition: ADMITTED TO [facility] - Billing Disposition and Condition Condition: STABLE Disposition: Admitted to [facility] - Attestation Statements Document Initiated by Antoniettaibcalin: Yes Documenting Scribe: Dolores Del Cid Provider For Whom Jorge is Documenting (Include Credential): Dr. Gunnar Willingham MD Scribe Attestation: I, Dolores Del Cid, scribed for Dr. Gunnar Willingham MD on 09/27/18 at 1831. Scribe Documentation Reviewed: Yes Provider Attestation: The documentation as recorded by the jorge, Dolores Del Cid accurately reflects the service I personally performed and the decisions made by me, Dr. Gunnar Willingham MD Status of Scribe Document: Viewed Consult Consult: 1552: Consult with Dr. Worthington, neuro Recommends OBV/ADMIT by hospitalist
[2018-09-27 13:54] LABS: ABS Basophils 0 10^3/ul (0-0.2); ABS Eosinophils 0.1 10^3/ul (0-0.6); ABS Lymphocytes 1.3 10^3/ul (1.0-4.8); ABS Monocytes 0.6 10^3/ul (0-0.8); ABS Neutrophils 5.1 10^3/ul (1.5-7.7); ABS Nucleated RBC 0 10^3/ul; Eosinophil % 1.3 %; Hematocrit 46 % (42-52); Hemoglobin 15.5 g/dl (14.0-18.0); Lymphocyte % 18.2 %; Mean Corpuscular HGB Conc 34 g/dl (31-36); Mean Corpuscular Hemoglobin 31 pg (27-31); Mean Corpuscular Volume 92 fL (80-94); Mean Platelet Volume 7.8 fL (7.4-10.4); Nucleated Red Blood Cells % 0.2; Platelet Count 150 10^3/ul (150-450); Red Blood Count 5.01 10^6/ul (4.00-5.40); Red Cell Distribution Width 14 % (10.5-15); White Blood Count 7.1 10^3/ul (3.5-10.8)
[2018-09-27 14:09] LABS: INR 0.97 (0.77-1.02)
[2018-09-27 14:10] LABS: ALT 26 U/L (7-52); AST 19 U/L (13-39); Albumin/Globulin Ratio 1.6 (1-3); Alkaline Phosphatase 57 U/L (34-104); Anion Gap 8 mmol/L (2-11); BUN/Creatinine Ratio 18.4 (8-20); Blood Urea Nitrogen 18 mg/dL (6-24); CO2 Carbon Dioxide 23 mmol/L (22-32); Calcium 9.2 mg/dL (8.6-10.3); Chloride 109 mmol/L (101-111); EGFR Non-African American 76.5 (>60); Globulin 2.5 g/dL (2-4); Glucose 113 mg/dL (70-100); Sodium 140 mmol/L (135-145); Total Protein 6.5 g/dL (6.4-8.9)
[2018-09-27 14:15] LABS: Alcohol < 10 mg/dL (<10)
[2018-09-27 14:25] LABS: Urine Appearance Clear; Urine Bilirubin Negative (Negative); Urine Blood Negative (Negative); Urine Color Yellow; Urine Glucose Negative (Negative); Urine Ketones Negative (Negative); Urine Nitrite Negative (Negative); Urine Protein Negative (Negative); Urine Specific Gravity 1.017 (1.010-1.030); Urine Urobilinogen Negative (Negative)
[2018-09-27 14:30] LABS: TSH (Thyroid Stimulating Horm) 1.26 mcIU/mL (0.34-5.60)
[2018-09-27 14:44] LABS: Barbiturates Urine Screen None Detected (None Detect); Benzodiazepine Urine Screen None Detected (None Detect); Urine Cannabinoids Screen None Detected (None Detect)
[2018-09-27] MEDS ORDERED: Acetaminophen TAB* 325 MG PO PRN (16:55)
[2018-09-27] MEDS ORDERED: Atenolol TAB* 25 MG PO ONE (16:58)
[2018-09-27] MEDS ORDERED: Verapamil SR TAB* 240 MG PO SCH (21:00)
[2018-09-27] MEDS ORDERED: Atenolol TAB* 50 MG PO SCH (21:00)
--- NOTE | 2018-09-27 21:00 | HP ---
CC: Ross Fonseca NP* HOSPITAL MEDICINE HISTORY AND PHYSICAL: DATE OF ADMISSION: 09/27/18 ATTENDING PHYSICIAN: Sandra Handley DO* (dictation provided by Zoraida Quinones NP) . CHIEF COMPLAINT: Episode of amnesia and brain fog. HISTORY OF PRESENT ILLNESS: Mr. Machado is a 68-year-old male with a past medical history of hyperlipidemia, morbid obesity, SVT/AFib with ablation, and coronary artery disease with stent placement x2, who presented to the hospital today with concern for an episode of amnesia and having brain fog. I will note that Mr. Machado was admitted on 10/31/17 with a similar complaint. The patient states he remembers waking up this morning and feeling well. He went out and was loading wood and doing some strenuous activity. He came into the house and reports that he felt that something was "coming on." He felt very foggy. He remembers walking around the house, not sure where he was going and what he was going to do. His states that he kept repeating that "I don't know." She took his blood pressure and noticed that systolically it was 190. He has not had any other complaint. The did not notice any neurological event and stated his speech was clear. He denied any chest pain, shortness of breath, nausea, vomiting, diarrhea, or abdominal pain. He states that he was in a good state of health prior to this occurring. The patient was seen in our hospital again in October 2017 with similar symptoms that were thought ultimately to be due to transient global amnesia, but also the possibility was entertained that this was due to uncontrolled hypertension and hypertensive encephalopathy. In the emergency room, Mr. Machado had labs that were unremarkable. The vitals were stable. His blood pressure was 148/106. He was afebrile. CT brain showed no acute abnormality of the brain. Chest x-ray showed interval resolution of previous left basilar airspace disease, which had been seen on . PAST MEDICAL HISTORY: 1. Hypertension. 2. Coronary artery disease with stent placement x2. 3. History of ablation for AFib and runs of SVT back in 1997. 4. DVT, right lower extremity. 5. Hyperlipidemia. 6. Morbid obesity. 7. History of hernia repair. 8. Bilateral wrist surgeries 20 years ago. 9. Right total knee replacement in 2006. MEDICATIONS: 1. Verapamil 120 mg p.o. BID. 2. Omeprazole 40 mg p.o. daily. 3. Fish Oil 1200 mg p.o. BID. 4. Nitroglycerin prn. 5. Atorvastatin 5 mg p.o. daily. 6. Aspirin 81 mg p.o. daily. 7. Allopurinol 300 mg p.o. daily. 8. Clopidogrel 75 mg p.o. daily. 9. Acetaminophen prn. ALLERGIES: No known drug allergies. FAMILY HISTORY: Parents both had coronary artery disease. Father had a coronary artery bypass graft. SOCIAL HISTORY: No report of alcohol, tobacco, or drug use. The patient lives with his , his healthcare proxy. REVIEW OF SYSTEMS: A 14-point review of systems was completed with Mr. Machado and all those mentioned above were negative. PHYSICAL EXAMINATION GENERAL: Mr. Machado is sitting up in the bed. He is in no acute distress. VITAL SIGNS: Temperature 98.7, pulse rate 68, respiratory rate 23, O2 saturation 98% on room air, blood pressure 148/106. LUNGS: Clear to auscultation bilaterally with no accessory muscle use and good aeration. HEART: S1, S2. No murmur, rub, or gallop and regular. ABDOMEN: Soft and nontender with bowel sounds positive x4. EXTREMITIES: No cyanosis or edema. NEURO: He is alert, he is oriented x3. He moves all extremities equally. There is no facial asymmetry or focal weakness. Extraocular movements are intact. He appears to have almost full recollection of the events of this morning and has shown no evidence of amnesia. SKIN: Intact. DIAGNOSTIC STUDIES/LAB DATA: WBC 7.1, hemoglobin 15.5, hematocrit 46, platelet count 150. INR 0.97. Sodium 140, potassium 4.0, chloride 109, serum bicarbonate 23, BUN 18, creatinine 0.98, glucose 113, lactic acid 1.4. Troponin 0.01. Urine showed no evidence of infection. Toxicology screen is negative. CT brain is read as per above. Chest x-ray shows no acute dysplastic process. ASSESSMENT: Mr. Machado is a 68-year-old male with a past medical history of coronary artery disease with stents x2, hypertension, supraventricular tachycardia and atrial fibrillation with ablation, deep venous thrombosis history; no longer on anticoagulation, who presents to the hospital today with concern for an episode of amnesia and "feeling foggy." Plans are for observation in the hospital for the followin. Amnesia with "feeling foggy." The patient is back to baseline now. The patient had a similar admission in October 2017. I question whether or not he had hypertensive encephalopathy. His reports that his blood pressure was in the 190s, although this could have been reflective of stress related to feeling confused. Regardless, I think that the patient would likely benefit from increased medications to control his blood pressure in the event that this is related to hypertensive encephalopathy and to provide better blood pressure control in general. It could also be transient global amnesia, in which case supportive care is all that is required. It could also be a transient ischemic attack, although this seems less likely. I have spoken directly with Dr. Worthington about the case. I made note of the fact that the patient had a negative MRI brain with similar symptoms in October 2017. Dr. Worthington states the patient does not need a repeat MRI during this hospitalization as long as he has no further neurological deficits or episodes of confusion. 2. Uncontrolled hypertension. Plan to increase atenolol to 50 mg p.o. daily starting tonight with an additional 25 mg. If he tolerates it tonight, we will continue with that daily. 3. History of coronary artery disease. Continue atorvastatin and aspirin. 4. Hyperlipidemia. Continue atorvastatin. 5. Gastroesophageal reflux disease. Continue omeprazole. 6. Code status is full code. TIME SPENT: Approximately 60 minutes were spent in admission of this patient, more than half of the time was spent with the patient at the bedside reviewing the events leading up to this hospitalization, performing the physical examination, and reviewing my plan of care. ZORAIDA QUINONES NP [id number]/[facility]PS #: [id number] AAKASH
[2018-09-27] MEDS: Heparin VIAL(*) 5000 UNITS/ML VIAL (FIVE THOUSAND) SUBCUT SCH (21:58)
[2018-09-28] MEDS ORDERED: Diltiazem TAB* 30 MG PO PRN (04:18)
[2018-09-28] MEDS: Heparin VIAL(*) 5000 UNITS/ML VIAL (FIVE THOUSAND) SUBCUT SCH ×3 (06:13→21:25)
[2018-09-28] MEDS: Allopurinol TAB* 300 MG PO SCH (08:09)
[2018-09-28] MEDS: Omeprazole CAP* 20 MG PO SCH (08:09)
[2018-09-28] MEDS: Atenolol TAB* 25 MG PO SCH (08:09)
[2018-09-28] MEDS: Atorvastatin* 10 MG TAB PO SCH (08:11)
[2018-09-28] MEDS ORDERED: Atenolol TAB* 50 MG PO SCH (09:00)
[2018-09-28] MEDS ORDERED: Aspirin EC TAB* 81 MG TAB.EC PO SCH (09:00)
--- NOTE | 2018-09-28 11:55 | PN ---
Subjective Date of Service: 09/28/18 Interval History: Reports NO further episodes of confusion or repeating words. denies dizziness, blurred vision. Denies chest pain or shortness breath. denies abd pain, n/v/ d. Family History: Unchanged from Admission Social History: Unchanged from Admission Past Medical History: Unchanged from Admission Objective Active Medications: Acetaminophen (Tylenol Tab*) 650 mg PO Q6H PRN PRN Reason: PAIN Allopurinol (Zyloprim Tab*) 300 mg PO DAILY [facility] Last Admin: 09/28/18 08:09 Dose: 300 mg Aspirin (Aspirin Ec Tab*) 81 mg PO DAILY [facility] Last Admin: 09/28/18 08:09 Dose: 81 mg Atenolol (Tenormin Tab*) 25 mg PO DAILY [facility] Last Admin: 09/28/18 08:09 Dose: 25 mg Atorvastatin Calcium (Lipitor*) 5 mg PO DAILY [facility] Last Admin: 09/28/18 08:11 Dose: 5 mg Diltiazem HCl (Cardizem Tab*) 30 mg PO Q8HR PRN PRN Reason: heart rate Heparin Sodium (Porcine) (Heparin Vial(*)) 5,000 units SUBCUT Q8HR [facility] Last Admin: 09/28/18 06:13 Dose: 5,000 units Omeprazole (Prilosec Cap*) 40 mg PO DAILY [facility] Last Admin: 09/28/18 08:09 Dose: 40 mg Vital Signs - 8 hr 09/28/18 09/28/18 09/28/18 07:37 08:14 11:45 Temperature 97.4 F 97.9 F Pulse Rate 59 54 Respiratory 18 18 18 Rate Blood Pressure 152/92 137/87 (mmHg) O2 Sat by Pulse 96 97 Oximetry Oxygen Devices in Use Now: None Appearance: appears comfortable resting in bed, no acute distress, alert and oreinted x 3 Eyes: No Scleral Icterus Ears/Nose/Mouth/Throat: Clear Oropharnyx, Mucous Membranes Moist Neck: NL Appearance and Movements; NL JVP, Trachea Midline Respiratory: Symmetrical Chest Expansion and Respiratory Effort, Clear to Auscultation Cardiovascular: NL Sounds; No Murmurs; No JVD, No Edema Abdominal: NL Sounds; No Tenderness; No Distention Extremities: No Edema, No Clubbing, Cyanosis Skin: No Rash or Ulcers Neurological: Alert and Oriented x 3, NL Sensation, NL Muscle Strength and Tone , - - CN II-XII intact , speach is clear, smile is equal, ndiaye to heel intact , no pronator drift noted Nutrition: Taking PO's Result Diagrams: 09/27/18 13:45 09/27/18 13:46 Assess/Plan/Problems-Billing Assessment: Mr. Ayala is a 68 y.o male with a hx of CAD, htn, hx of DVT, afib/SVT, hld who presented to the emergency room with episode of confusion and word repeating, found to be hypertensive in the ER. Patient with similar episode in Oct 2017 was thought to have transient global amnesia. Symptoms have all resolved. - Patient Problems (1) Confusion Current Visit: Yes Status: Acute Code(s): R41.0 - DISORIENTATION, UNSPECIFIED SNOMED Code(s): 237763694 Comment: - Today the patient is back to baseline. no further episodes of confusion ,lost of memory, or word repeating - CT brain - negative - CTA of the head and neck showed minimal stenosis ,At the superiormost portion of the left carotid artery just below the carotid bulb there is mostly noncalcified atheroma causing at least 40% degree narrowing. The mostly noncalcified appearance of this atheroma raises concern for microemboli if the patient is exhibiting clinical features of transient ischemic attack. - results discussed with Dr. Worthington who has recommended MRI of the Brain and will see the patient tomorrow in consult Continues to have lost of memory regarding coming to the hospital - will increase ASA to 325mg as per neurology recommendations (2) HTN (hypertension) Current Visit: No Status: Acute Code(s): I10 - ESSENTIAL (PRIMARY) HYPERTENSION SNOMED Code(s): 35311623 Comment: BP was high on admission - atenolol dose increased to 50 mg daily - today HR 53 blood pressure 120's-150's - will decrease atenolol to 25mg - restart verapamil tomorrow (3) DVT prophylaxis Current Visit: No Status: Acute Code(s): HUR0107 - SNOMED Code(s): 131754692 Comment: SQ heparin (4) Full code status Current Visit: No Status: Acute Code(s): Z78.9 - OTHER SPECIFIED HEALTH STATUS SNOMED Code(s): 947116499 Status and Disposition: discharge home when medically stable
[2018-09-28] MEDS ORDERED: Iohexol 350* (CONTRAST) 500 ML MDV IV ONE (15:46)
[2018-09-29] MEDS: Heparin VIAL(*) 5000 UNITS/ML VIAL (FIVE THOUSAND) SUBCUT SCH ×2 (05:58→17:17)
[2018-09-29] MEDS ORDERED: LORazepam INJ* 2 MG/ML 1 ML VIAL IV PUSH ONE (08:19)
[2018-09-29] MEDS ORDERED: LORazepam INJ* 2 MG/ML 1 ML VIAL IV PUSH PRN ×3 (08:20→15:00)
[2018-09-29] MEDS ORDERED: Aspirin EC TAB* 325 MG PO SCH (09:00)
[2018-09-29] MEDS: Atorvastatin* 10 MG TAB PO SCH (09:03)
[2018-09-29] MEDS: Omeprazole CAP* 20 MG PO SCH (09:03)
[2018-09-29] MEDS: Allopurinol TAB* 300 MG PO SCH (09:03)
[2018-09-29] MEDS: Atenolol TAB* 25 MG PO SCH (09:03)
[2018-09-29 17:21] VITALS: BP 138/84
--- NOTE | 2018-09-29 23:58 | CONS ---
CONSULTATION NOTE: DATE OF CONSULT: 10/30/17 PATIENT OF: Dr. Alvares and Dr. Ross Fonseca. HISTORY OF PRESENT ILLNESS: This is a 68-year-old man who has a past history of transient global amnesia in October 2017 and had a similar event upon presentation on 09/27/18. He could not remember anything, any acute details whatsoever, but this is completely not clear other than some amnesia right around the event. He was admitted for observation and had further testing. Prior to the event, he had a normal EEG and MRI scan. PAST MEDICAL HISTORY: He has a history of SVT/AFib with ablation and coronary artery disease with stent x2 and had been on chronic Plavix through his shop laborer in [place] but this was stopped by his shop laborer here. He has hyperlipidemia and morbid obesity. He has past history of hypertension as well as DVT of right lower extremity, and hyperlipidemia. PAST SURGICAL HISTORY: 1. Herniorrhaphy. 2. Bilateral wrist surgeries. 3. Total knee replacement. MEDICATIONS: At home include: 1. Verapamil 120 twice a day. 2. Omeprazole 40 mg daily. 3. Lipitor 5 mg daily. 4. Atenolol 25 mg daily. 5. Aspirin 81 mg daily. 6. He was not on Plavix at home. 7. Allopurinol 300 mg daily. ALLERGIES: He has no known drug allergies. FAMILY HISTORY: Both parents had coronary artery disease. SOCIAL HISTORY: He does not smoke, drink, or use drugs. REVIEW OF SYSTEMS: Negative in all 14-spheres other than in the HPI. PHYSICAL EXAM: Temperature 97.2, pulse 66, respiratory rate 21, blood pressure 138/84. He is alert and oriented with normal speech and comprehension. Memory was 3/3. Cranial nerves II through XII were intact. Fundi showed sharp discs. Motor exam revealed normal tone, strength, coordination and gait. Sensation intact to light touch. Reflexes were 2 and equal, downgoing toes. Neck: Supple. Chest: Clear. Cardiovascular: Regular rate and rhythm. Abdomen: Soft with positive bowel sounds. He had a CTA, which showed less than 50% carotid stenosis bilaterally but in the superior most portion of the left carotid artery, he had what is described as basically a friable concerning plaque. We did an MRI scan to make sure that there is no subclinical stroke associated with this. This was not the case and we began him on Plavix. He is going to have his LDL rechecked, and we recommended to him and to Dr. Alvares that he engage in a significant weight loss program. I discussed with him that if he has symptoms of stroke, he needs to go to the ER promptly. I will be seeing him in a year's time repeating a CTA assuming there has been no change in his clinical situation before that. Thank you for sharing his case. [id number]/[facility] #: [id number] AAKASH
== END 2018-09-29 17:20 | disposition home or self-care (01) ==
LOC: ED 12:35 → MED 16:37
PROVIDERS: ADMIT Hospitalist; ATTEND Internal Medicine
DX: R41.0 Disorientation, unspecified (principal); E78.5 Hyperlipidemia, unspecified; E66.01 Morbid (severe) obesity due to excess calories; I47.1 Supraventricular tachycardia; I25.10 Atherosclerotic heart disease of native coronary artery without angina pectoris; Z95.5 Presence of coronary angioplasty implant and graft; I82.401 Acute embolism and thrombosis of unspecified deep veins of right lower extremity; Z96.651 Presence of right artificial knee joint; Z87.710 Personal history of (corrected) hypospadias; Z79.82 Long term (current) use of aspirin; I10 Essential (primary) hypertension
CPT/HCPCS: 36415; 70450; 70496; 70498; 70551; 71045; 80053; 80307; 80320; 81003; 83605; 84443; 84484; 85025; 85610; 93005; 96365; 96372; 99284; A9270-GY; G0378; G0480; J1644; J2060; Q9967

== ENCOUNTER 2019-01-05 18:21 | Emergency (ER) | payer MEDICARE ==
[2019-01-05] MEDS ORDERED: Morphine 4 MG/ML VIAL (1 ml) 4 MG/ML VIAL IM ONE (19:48)
--- NOTE | 2019-01-05 20:11 | ED ---
Back Pain - HPI Summary HPI Summary: 68 year old male presents with back pain today. He states that he was cutting wood and ended up falling onto his back. He states he landed on the right side of his back. No midline tenderness. No weakness. Did urinate and there is no blood or dysuria. He is on Plavix. Has history of cardiax issues. Hasn't taking anything for his pain. Denies any pains in legs. No numbness or tingling. No saddle anesthesia or loss of bladder. Has never had this pain before. - History of Current Complaint Chief Complaint: EDBackInjuryPain Stated Complaint: FALL/BACK PAIN PER PT Time Seen by Provider: 01/05/19 19:38 Pain Intensity: 9 - Allergies/Home Medications Allergies/Adverse Reactions: Allergies Allergy/AdvReac Type Severity Reaction Status Date / Time No Known Allergies Allergy Verified 01/05/19 18:45 PMH/Surg Hx/FS Hx/Imm Hx Endocrine/Hematology History: Denies: Hx Diabetes Cardiovascular History: Reports: Hx Angina, Hx Coronary Artery Disease, Hx Hypercholesterolemia, Hx Hypertension Denies: Hx Myocardial Infarction, Hx Pacemaker/ICD, Hx Valvular Heart Disease Respiratory History: Reports: Hx Sleep Apnea - current CPAP user Denies: Hx Asthma, Hx Chronic Obstructive Pulmonary Disease (COPD) GI History: Reports: Hx Gastroesophageal Reflux Disease - omeprazole Musculoskeletal History: Reports: Hx Arthritis - ankles and feet Sensory History: Denies: Hx Contacts or Glasses, Hx Hearing Aid Opthamlomology History: Denies: Hx Contacts or Glasses Psychiatric History: Reports: Hx Panic Disorder - asking for more meds - Cancer History Cancer Type, Location and Year: Squamous Cell Carcinoma - skin Hx Chemotherapy: Yes - topical 5FU - Surgical History Surgery Procedure, Year, and Place: cardiac cath, cardiac ablations, stent x2, left inguinal hernia, right knee replacement Hx Anesthesia Reactions: No Infectious Disease History: No Infectious Disease History: Denies: Traveled Outside the [place] in Last 30 Days - Family History Known Family History: Positive: Cardiac Disease - Social History Alcohol Use: Occasionally Alcohol Amount: 2-3 beers per day Substance Use Type: Reports: None Smoking Status (MU): Never Smoked Tobacco Review of Systems Negative: Fever Negative: Chest Pain Negative: Shortness Of Breath Positive: Myalgia - back pain All Other Systems Reviewed And Are Negative: Yes Physical Exam Triage Information Reviewed: Yes Vital Signs On Initial Exam: Initial Vitals Temp Pulse Resp BP Pulse Ox 97.9 F 74 16 155/97 96 01/05/19 18:41 01/05/19 18:41 01/05/19 18:41 01/05/19 18:41 01/05/19 18:41 Vital Signs Reviewed: Yes Appearance: Positive: Well-Appearing Skin: Positive: Warm, Dry Head/Face: Positive: Normal Head/Face Inspection Eyes: Positive: Normal, Conjunctiva Clear Respiratory/Lung Sounds: Positive: Clear to Auscultation, Breath Sounds Present Cardiovascular: Positive: Normal, RRR Abdomen Description: Positive: Nontender, Soft, CVA Tenderness (R) Bowel Sounds: Positive: Present Musculoskeletal: Positive: Strength/ROM Intact - back, Other - tenderness right side of back, good pulses, sensation grossly intact Neurological: Positive: Normal Psychiatric: Positive: Normal Diagnostics - Vital Signs Vital Signs Temp Pulse Resp BP Pulse Ox 01/05/19 18:41 97.9 F 74 16 155/97 96 - Laboratory Lab Statement: Any lab studies that have been ordered have been reviewed, and results considered in the medical decision making process. - CT abd CT Interpretation Completed By: Radiologist Summary of CT Findings: IMPRESSION: 1. Right ninth rib fracture. 2. Cholelithiasis. Back Pain Course/Dx - Course Course Of Treatment: 68 year old male presents with back pain today. He states that he was cutting wood and ended up falling onto his back. He states he landed on the right side of his back. No midline tenderness. No weakness. Did urinate and there is no blood or dysuria. He is on Plavix. Has history of cardiax issues. Hasn't taking anything for his pain. Denies any pains in legs. No numbness or tingling. No saddle anesthesia or loss of bladder. Has never had this pain before. On exam tenderness over the right flank and right side of back. Lungs clear to auscultation. Gave morphine feeling better. CT shows fracture of ninth rib. Will discharge with pain medication. Told importance of taking deep breaths. Patient understands agrees the plan. - Diagnoses Differential Diagnosis/HQI/PQRI: Positive: Fracture, Herniated Disc, Strain, Sprain Provider Diagnoses: Fall, Right rib fracture Discharge - Sign-Out/Discharge Documenting (check all that apply): Patient Departure Patient Received Moderate/Deep Sedation with Procedure: No - Discharge Plan Condition: Good Disposition: HOME Prescriptions: oxyCODONE/Acetamin 5/325 MG* [Percocet 5/325 TAB*] 1 tab PO Q4H PRN #20 tab MDD 6 PRN Reason: Pain Patient Education Materials: Rib Fracture (ED) Referrals: Ross Fonseca, SLEEP MEDICINE PHYSICIAN [Primary Care Provider] - Additional Instructions: Take deep breath throughout the day Take Tylenol for pain every 6 hours, take percocet every 4-6 hours as needed for pain Follow up with primary care physician within 5 days Return to ED if develop new productive cough, fever, or any new or worsening symptoms - Billing Disposition and Condition Condition: GOOD Disposition: Home
[2019-01-05 22:47] VITALS: BP 159/67
== END 2019-01-05 22:45 | disposition home or self-care (01) ==
LOC: ED 18:21
DX: S22.31XA Fracture of one rib, right side, initial encounter for closed fracture (principal); W01.0XXA Fall on same level from slipping, tripping and stumbling without subsequent striking against object, initial encounter; K80.20 Calculus of gallbladder without cholecystitis without obstruction; M48.061 Spinal stenosis, lumbar region without neurogenic claudication; G47.33 Obstructive sleep apnea (adult) (pediatric); K21.9 Gastro-esophageal reflux disease without esophagitis; Z79.899 Other long term (current) drug therapy; Z85.828 Personal history of other malignant neoplasm of skin
CPT/HCPCS: 72131; 74176; 96374; 99282; J2270